=== PATIENT | female | born 1945 | race Hispanic/Latino ===

== ENCOUNTER 2016-07-19 12:52 | Inpatient (IN) | payer MEDICARE, MEDICAID ==
[2016-07-19] MEDS ORDERED: Sodium Chloride 0.9% 1,000 ML IV ONE (13:36)
[2016-07-19 14:53] LABS: BASO % 0.3 % (0.0-2.0); EOS % 9.4 % (0.0-4.0); HEMATOCRIT 23.9 % (34.0-47.0); LYMPH # 1.3 K/uL (1.0-4.3); LYMPH % 12.3 % (20.0-40.0); MEAN CELL VOLUME 74.4 fL (81.0-99.0); MEAN CORPUSCULAR HEMOGLOBIN 24.5 pg (27.0-31.0); MEAN CORPUSCULAR HGB CONC 32.9 g/dL (33.0-37.0); MEAN PLATELET VOLUME 9.5 fL (7.2-11.7); MONO # 0.4 K/uL (0.0-0.8); RED CELL DISTRIBUTION WIDTH 17.2 % (11.5-14.5); WHITE BLOOD COUNT 10.7 K/uL (4.8-10.8)
[2016-07-19 15:05] LABS: POTASSIUM 3.7 mmol/L (3.6-5.2)
[2016-07-19 15:07] LABS: BILIRUBIN,TOTAL 0.5 mg/dL (0.2-1.3)
[2016-07-19 15:08] LABS: ALB/GLOB RATIO 0.8 (1.0-2.1); PHOSPHOROUS 3.6 mg/dL (2.5-4.5)
[2016-07-19 15:09] LABS: CALCIUM 9.1 mg/dl (8.6-10.4); MAGNESIUM 1.9 mg/dL (1.6-2.3)
[2016-07-19 15:18] LABS: TROPONIN I 0.015 ng/mL (0.00-0.120)
[2016-07-19 16:26] LABS: RBC URINE 1 /hpf (0-3); RENAL EPITHELIAL < 1 /hpf (0-3); URINE BACTERIA FEW (<OCC); URINE BILIRUBIN NEGATIVE (NEGATIVE); URINE BLOOD NEGATIVE (NEGATIVE); URINE COLOR Yellow (YELLOW); URINE GLUCOSE (UA) NORMAL (Normal); URINE KETONE NEGATIVE (NEGATIVE); URINE LEUKOCYTE ESTERASE 2+ Leu/uL (Negative); URINE PROTEIN NEGATIVE (NEGATIVE); URINE UROBILINOGEN NORMAL mg/dL (0.2-1.0); WBC URINE 7 /hpf (0-5)
--- NOTE | 2016-07-19 17:10 | C.PDOC ---
History Of Present Illness Pt has been having frequent falls. She was evaluated at [facility] and found to have a left kidney mass. She has been having chronic diarrhea. She lives alone and ambulates with a walker, but she fell again today and could not get back up on her own. Time Seen by Provider: 07/19/16 13:10 Chief Complaint (Nursing): Dizziness/Lightheaded History Per: Patient, Family (sister) Onset/Duration Of Symptoms: Days Current Symptoms Are (Timing): Still Present Seizure Or Post-ictal Symptoms: None Possible Causative Factor(s): Decreased PO Intake, Other (Diarrhea) Fall Associated With With Symptoms: Yes, No Injury As Result Of Fall Severity: Moderate - Symptoms Of CVA Associated Symptoms: Decreased Ability To Walk Recent Head Trauma: No Past Medical History Reviewed: Historical Data, Nursing Documentation, Vital Signs Vital Signs: Last Vital Signs Temp 97.9 F 07/19/16 13:04 Pulse 89 07/19/16 17:06 Resp 20 07/19/16 17:06 BP 112/77 07/19/16 17:06 Pulse Ox 96 07/19/16 17:06 - Medical History PMH: HTN, Hypothyroidism Surgical History: No Surg Hx Family History: States: Unknown Family Hx - Social History Hx Alcohol Use: No Hx Substance Use: No - Immunization History Hx Tetanus Toxoid Vaccination: No Hx Influenza Vaccination: No Hx Pneumococcal Vaccination: No Review Of Systems Except As Marked, All Systems Reviewed And Found Negative. Constitutional: Positive for: Weakness. Negative for: Fever Cardiovascular: Negative for: Chest Pain Respiratory: Negative for: Shortness of Breath Gastrointestinal: Positive for: Abdominal Pain, Diarrhea. Negative for: Vomiting, Melena, Hematochezia, Hematemesis Genitourinary: Negative for: Dysuria Musculoskeletal: Negative for: Neck Pain Skin: Negative for: Rash Neurological: Negative for: Weakness, Numbness, Seizures, Headache Physical Exam - Physical Exam Appears: No Acute Distress, Chronically Ill Skin: Warm, Dry Head: Atraumatic Eye(s): bilateral: PERRL, EOMI Neck: Normal ROM, Supple Cardiovascular: Rhythm Regular Respiratory: Normal Breath Sounds, No Accessory Muscle Use Gastrointestinal/Abdominal: Soft, No Tenderness Back: No CVA Tenderness Extremity: Normal ROM Neurological/Psych: Oriented x3, Normal Motor, Normal Sensation ED Course And Treatment - Laboratory Results Result Diagrams: 07/19/16 14:55 07/19/16 14:46 Lab Interpretation: Abnormal Interpretation Of Abnormal: Anemia. Renal insufficiency. ECG: Interpreted By Me, Viewed By Me ECG Rhythm: Sinus Rhythm, Nonspecific Changes ECG Interpretation: No Acute Changes Rate From EC O2 Sat by Pulse Oximetry: 96 Pulse Ox Interpretation: Normal - Physician Consult Information Physician Contacted: Andrey Lopez (Urology) Outcome Of Conversation: He will see pt in the hospital. Disposition Discussed With : Juli Montes (city controller) Comment: He accepted pt on his service. Doctor Will See Patient In The: Hospital Counseled Patient/Family Regarding: Studies Performed, Diagnosis - Disposition Disposition: HOSPITALIZED Disposition Time: 17:13 Condition: FAIR - Clinical Impression Clinical Impression: Anemia, Diarrhea, Frequent falls, Renal mass
[2016-07-19] MEDS ORDERED: Dextrose 5%/0.45% NS 1,000 ML IV ONE (20:52)
[2016-07-19] MEDS: Dextrose 5%/0.45% NS 1,000 ML IV SCH (20:59)
[2016-07-20 07:04] LABS: INR 1.3
[2016-07-20 07:11] LABS: HEMATOCRIT 22.3 % (34.0-47.0); MEAN CELL VOLUME 73.4 fL (81.0-99.0); MEAN CORPUSCULAR HEMOGLOBIN 24.5 pg (27.0-31.0); MEAN CORPUSCULAR HGB CONC 33.4 g/dL (33.0-37.0); MEAN PLATELET VOLUME 9.2 fL (7.2-11.7); RED CELL DISTRIBUTION WIDTH 17.6 % (11.5-14.5); WHITE BLOOD COUNT 9.7 K/uL (4.8-10.8)
[2016-07-20 07:27] LABS: POTASSIUM 3.8 mmol/L (3.6-5.2)
[2016-07-20 07:29] LABS: ALB/GLOB RATIO 0.8 (1.0-2.1); BILIRUBIN,TOTAL 0.4 mg/dL (0.2-1.3); CALCIUM 8.4 mg/dl (8.6-10.4); TOTAL PROTEIN 6.3 g/dL (6.3-8.3)
[2016-07-20 07:58] LABS: CARCINOEMBRYONIC ANTIGEN 2.6 ng/mL (0-3.0)
[2016-07-20] MEDS: Enoxaparin 40 mg Syringe SC SCH (10:00)
[2016-07-20] MEDS ORDERED: Propofol 10 mg/ml Inj (20 ML) ONE (10:24)
--- NOTE | 2016-07-20 10:32 | CP.PCM.PN ---
Subjective - Date & Time of Evaluation Date of Evaluation: 07/20/16 Time of Evaluation: 08:30 - Subjective Subjective: PGY2 Medicine Note - Dr. Montes's service: Patient seen and examined at bedside this AM. Patient has no new complaints. Awaiting results. Objective - Vital Signs/Intake and Output Vital Signs (last 24 hours): Temp Pulse Resp BP Pulse Ox 97.6 F 74 20 122/78 96 07/20/16 08:38 07/20/16 08:38 07/20/16 08:38 07/20/16 08:38 07/20/16 08:38 - Medications Medications: Current Medications Enoxaparin Sodium (Lovenox) 40 mg SC DAILY [facility] Dextrose/Sodium Chloride (Dextrose 5%/0.45% Ns 1000 Ml) 1,000 mls @ 80 mls/hr IV .[id number] [facility] Last Admin: 07/19/16 20:59 Dose: 80 mls/hr Pantoprazole Sodium (Protonix Inj) 40 mg IVP DAILY [facility] Pneumococcal Polyvalent Vaccine (Pneumovax 23 Vaccine) 0.5 ml IM .ONCE ONE Stop: 07/22/16 10:01 - Labs Labs: 07/20/16 06:46 07/20/16 06:46 PT 14.3 SECONDS (9.7-12.2) H 07/20/16 06:46 INR 1.3 07/20/16 06:46 APTT 27 SECONDS (21-34) 07/20/16 06:46 - Constitutional Appears: Non-toxic, No Acute Distress - Head Exam Head Exam: NORMAL INSPECTION - Eye Exam Eye Exam: EOMI - ENT Exam ENT Exam: Mucous Membranes Moist - Respiratory Exam Respiratory Exam: Clear to Ausculation Bilateral, NORMAL BREATHING PATTERN. absent: Rhonchi, Wheezes - Cardiovascular Exam Cardiovascular Exam: REGULAR RHYTHM, +S1, +S2 - GI/Abdominal Exam GI & Abdominal Exam: Soft, Normal Bowel Sounds Assessment and Plan - Assessment and Plan (Free Text) Assessment: Anemia Hgb 7.4 today from 7.9 on admission F/U stool occult blood GI consult - Dr. Smith - help appreciated Heme/Onc consult - Dr. Medeiros - f/u recs Chronic Diarrhea GI consult - Dr. Smith - help appreciated NPO diet CA 19-9 127H CA 125 20.9 (normal) F/u C diff, stool occult blood, stool culture Transaminitis Improving GI consult - Dr. Smith - help appreciated Monitor Frequent Falls UA abnormal but Urine culture negative Likely secondary to anemia Kidney Mass Urology consult - Dr. Lopez - f/u recs Prophylaxis Lovenox 40mg SC daily Protonix 40mg IVP daily
[2016-07-20] MEDS ORDERED: Peg-Electrolyte Oral Soln 4L (Golytely) PO ONE (13:38)
[2016-07-20] MEDS: Dextrose 5%/0.45% NS 1,000 ML IV SCH ×2 (14:23→20:49)
--- NOTE | 2016-07-20 15:05 | PCM.URO ---
Urology Progress Note - Objective Lab Results Last 24 Hours: Laboratory Results - last 24 hr 07/20/16 07/20/16 07/20/16 06:46 06:46 06:46 WBC 9.7 RBC 3.03 L Hgb 7.4 L Hct 22.3 L MCV 73.4 L MCH 24.5 L MCHC 33.4 RDW 17.6 H Plt Count 270 MPV 9.2 PT 14.3 H INR 1.3 APTT 27 Sodium 135 Potassium 3.8 Chloride 103 Carbon Dioxide 22 Anion Gap 14 BUN 8 Creatinine 1.1 Est GFR ( Amer) 59 Est GFR (Non-Af Amer) 49 Random Glucose 99 Calcium 8.4 L Total Bilirubin 0.4 AST 36 D ALT 57 H D Alkaline Phosphatase 154 H Total Protein 6.3 Albumin 2.8 L Globulin 3.5 Albumin/Globulin Ratio 0.8 L Carcinoembryonic Ag 2.6 CA 19-9 Antigen 127 H CA 125 Antigen 20.9 Blood Type Antibody Screen 07/20/16 06:46 WBC RBC Hgb Hct MCV MCH MCHC RDW Plt Count MPV PT INR APTT Sodium Potassium Chloride Carbon Dioxide Anion Gap BUN Creatinine Est GFR ( Amer) Est GFR (Non-Af Amer) Random Glucose Calcium Total Bilirubin AST ALT Alkaline Phosphatase Total Protein Albumin Globulin Albumin/Globulin Ratio Carcinoembryonic Ag CA 19-9 Antigen CA 125 Antigen Blood Type O POSITIVE Antibody Screen Negative Intake & Output: Intake & Output 07/19/16 07/20/16 07/20/16 18:59 06:59 18:59 Intake Total 300 Balance 300 Intake: IV 300 Other: # Bowel Movements 4 Vital Signs: Vital Signs - 24 hr 07/19/16 07/19/16 07/19/16 17:14 18:36 19:23 Temperature 99.6 F Pulse Rate 89 Respiratory 16 Rate Blood Pressure 128/62 O2 Sat by Pulse 96 98 Oximetry 07/19/16 07/19/16 07/20/16 20:58 23:32 03:17 Temperature 98.1 F 98 F Pulse Rate 88 71 Respiratory 16 16 20 Rate Blood Pressure 138/69 128/76 O2 Sat by Pulse 99 98 Oximetry 07/20/16 07/20/16 07/20/16 08:38 10:31 10:39 Temperature 97.6 F 97.6 F 97.5 F L Pulse Rate 74 74 81 Respiratory 20 20 15 Rate Blood Pressure 122/78 96/67 L 97/70 L O2 Sat by Pulse 96 97 98 Oximetry 07/20/16 07/20/16 10:54 11:09 Temperature 97.5 F L 97.5 F L Pulse Rate 78 77 Respiratory 15 21 Rate Blood Pressure 95/62 L 98/70 L O2 Sat by Pulse 99 98 Oximetry
--- NOTE | 2016-07-20 15:22 | PCM.PSYCH ---
Initial Psychiatric Evaluation - Initial Psychiatric Evaluation Type of Admission: Voluntary Legal Status: Capacity Chief Complaint (in patient's own words): I am feeling anxious History of Present Illness and Precipitating Events: Patient is a 70 year old female who lives alone. Patient's sister is her primary caregiver. Patient is not a reliable historian, and sister is providing information at patient's bedside. patient was admitted on the medical floor because of the left kidney mass. Sister states that patient has a history of major depressive, schizophrenia, and bipolar disease that had been managed for 15-20 years with depakote 750 mg and seroquil 300 mg BID. Patient was admitted to [facility] [place] in [place], and taken off depakote completely reduced to seroquil 300 mg daily. Sister states that the patient was experiencing "shakes" and still is, and no reason was given for the medication change. Sister states that the patient had another "breakdown" recently- the sister tried to go to the patient's house but the patient was on the floor and unable to get to the door. Sister called the police who came and broke the door down. Sister stated that the patient had defecated in all rooms of her house. Sister contacted [facility] which has been taking care of the patient's medical information- they suggested a psychiatric consult while at [facility] to see if patient needs to be started back on her initial doses of depakote and seroquil. On exam, patient is internally withdrawn and displays disorganized thinking and disorganized speech. She also expresses a fine hand tremor. however she denies any auditory or visual hallucinations and denies any suicidal ideation or homicidal ideation. Current Medications: Active Medications Generic Name Dose Route Start Last Admin Trade Name James PRN Reason Stop Dose Admin Bisacodyl 5 mg 07/20/16 16:00 Dulcolax PO 07/20/16 16:01 ONCE ONE Enoxaparin Sodium 40 mg 07/20/16 10:00 07/20/16 10:00 Lovenox SC Not Given DAILY [facility] Dextrose/Sodium Chloride 1,000 mls @ 80 mls/hr 07/19/16 19:45 07/20/16 14:23 Dextrose 5%/0.45% Ns 1000 Ml IV 80 mls/hr .[id number] [facility] Administration Levothyroxine Sodium 25 mcg 07/21/16 06:30 Synthroid PO DAILY@0630 [facility] Metoclopramide HCl 10 mg 07/20/16 18:00 Reglan IVP 07/22/16 18:01 Q6 [facility] Pantoprazole Sodium 40 mg 07/20/16 10:00 07/20/16 14:25 Protonix Inj IVP 40 mg DAILY [facility] Administration Pneumococcal Polyvalent Vaccine 0.5 ml 07/22/16 10:00 Pneumovax 23 Vaccine IM 07/22/16 10:01 .ONCE ONE Primidone 250 mg 07/20/16 14:00 07/20/16 14:24 Mysoline PO 250 mg Q12 [facility] Administration Quetiapine Fumarate 300 mg 07/20/16 22:00 Seroquel PO HS [facility] Past Psychiatric History - Past Psychiatric History Previous Treatment History: Inpatient Pertinent Medical Hx (Current Medical&Sleep Prob, Allergies): Allergies Allergy/AdvReac Type Severity Reaction Status Date / Time No Known Allergies Allergy Verified 07/19/16 19:10 Levothyroxine [Synthroid] 25 mcg PO DAILY 07/19/16 Primidone [Mysoline] 250 mg PO Q8 07/19/16 QUEtiapine [SEROquel] 300 mg PO DAILY 07/19/16 Review of Systems - Review of Systems All systems: reviewed and no additional remarkable complaints except - Psychiatric Psychiatric: Anxiety, Depression, Irritability Mental Status Examination - Personal Presentation Personal Presentation: Looks stated age - Affect Affect: Broad - Motor Activity Additional comments: Hand tremor - Reliability in Providing Information Reliability in Providing Information: Poor, due to alteration in thoughts, Poor , due to cognitve impairment - Speech Speech: Disorganized, Tangential - Mood Mood: Depressed, Anxious - Formal Thought Process Formal Thought Process: Delusions, Paranoia, Loosening of associations - Obsessions/Compulsions Obsessions: No Compulsions: No - Cognitive Functions Orientation: Person, Place, Situation, Time Sensorium: Alert Attention/Concentration: Attentive Abstract Thinking: [place] Estimate of Intelligence: Below average Judgement: Imparied, as evidence by: Poor judgement, Imparied, as evidence by: Lack of insight into illness - Risk Risk: Diminished functioning - Strength & Assets Inventory Strength & Assets Inventory: Family support DSM 5 DX - DSM 5 DSM 5 Diagnosis: schizoaffective disorder bipolar - Recommended/Plan of Treatment Treatment Recommendations and Plan of Treatment: Schizoaffective disorder bipolar type CBT Psychoeducation Supportive therapy, individual therapy Seroquel 300 mg by mouth daily at bedtime - Smoking Cessation Smoking Cessation Initiated: No
[2016-07-20] MEDS ORDERED: Bisacodyl 5mg EC Tab PO ONE (16:00)
--- NOTE | 2016-07-20 17:17 | CP.PCM.CON ---
History of Present Illness - History of Present Illness History of Present Illness: 70 year old female with a history of bipolar/schizophrenia, left renal mass, admitted s/p fall. The patient is not a clear historian but review of her medical records shows she was diagnosed with left sided renal mass. She is unclear if she was supposed to have this removed. She notes to increasing abdominal pain associated with diarrhea. Due to repeated bowel movements, she notes to increasing weakness which led to her fall. She denies abnormal bleeding and bruising. Past medical history: bipolar/schizophrenia Past surgical history: None Family history: Denies hematologic and oncologic problems Social history: Denies tobacco, alcohol, and illicit drug use. Allergies: NKA Review of systems: All remaining review of systems inclduing HEENT, cardiovascular, respiratory, gastrointestinal, genitourinary, musculoskeletal, dermatologic, neurologic, and psychiatric are negative unless mentioned in the HPI. Past Patient History - Past Medical History & Family History Past Medical History?: Yes - Past Social History Smoking Status: Never Smoked - CARDIAC Hx Cardiac Disorders: Yes Hx Hypertension: Yes - PULMONARY Hx Respiratory Disorders: No - NEUROLOGICAL Hx Neurological Disorder: No - HEENT Hx HEENT Problems: No - RENAL Hx Chronic Kidney Disease: No - ENDOCRINE/METABOLIC Hx Endocrine Disorders: Yes Hx Hypothyroidism: Yes - HEMATOLOGICAL/ONCOLOGICAL Hx Blood Disorders: No - INTEGUMENTARY Hx Dermatological Problems: No - MUSCULOSKELETAL/RHEUMATOLOGICAL Hx Musculoskeletal Disorders: No Hx Falls: Yes - GASTROINTESTINAL Hx Gastrointestinal Disorders: No - GENITOURINARY/GYNECOLOGICAL Hx Genitourinary Disorders: Yes Hx Urinary Tract Infection: Yes Other/Comment: renal tumor - PSYCHIATRIC Hx Psychophysiologic Disorder: No Hx Substance Use: No - SURGICAL HISTORY Hx Surgeries: No - ANESTHESIA Hx Anesthesia: No Meds Allergies/Adverse Reactions: Allergies Allergy/AdvReac Type Severity Reaction Status Date / Time No Known Allergies Allergy Verified 07/19/16 19:10 - Medications Medications: Current Medications Enoxaparin Sodium (Lovenox) 40 mg SC DAILY [facility] Last Admin: 07/20/16 10:00 Dose: Not Given Hydroxyzine HCl (Atarax) 25 mg PO Q6 PRN PRN Reason: Agitation Dextrose/Sodium Chloride (Dextrose 5%/0.45% Ns 1000 Ml) 1,000 mls @ 80 mls/hr IV .[id number] [facility] Last Admin: 07/20/16 14:23 Dose: 80 mls/hr Levothyroxine Sodium (Synthroid) 25 mcg PO DAILY@0630 [facility] Metoclopramide HCl (Reglan) 10 mg IVP Q6 [facility] Stop: 07/22/16 18:01 Pantoprazole Sodium (Protonix Inj) 40 mg IVP DAILY [facility] Last Admin: 07/20/16 14:25 Dose: 40 mg Pneumococcal Polyvalent Vaccine (Pneumovax 23 Vaccine) 0.5 ml IM .ONCE ONE Stop: 07/22/16 10:01 Primidone (Mysoline) 250 mg PO Q12 [facility] Last Admin: 07/20/16 14:24 Dose: 250 mg Quetiapine Fumarate (Seroquel) 300 mg PO HS [facility] Physical Exam - Head Exam Head Exam: ATRAUMATIC - Eye Exam Eye Exam: Normal appearance - ENT Exam ENT Exam: Mucous Membranes Dry - Respiratory Exam Respiratory Exam: NORMAL BREATHING PATTERN - Cardiovascular Exam Cardiovascular Exam: +S1, +S2 - GI/Abdominal Exam GI & Abdominal Exam: Normal Bowel Sounds - Extremities Exam Extremities exam: Positive for: pedal edema - Neurological Exam Neurological exam: Oriented x3 - Psychiatric Exam Psychiatric exam: Depressed, Flat Affect - Skin Skin Exam: Warm Results - Vital Signs Recent Vital Signs: Last Vital Signs Temp 98.6 F 07/20/16 16:17 Pulse 71 07/20/16 16:17 Resp 20 07/20/16 16:17 BP 108/76 07/20/16 16:17 Pulse Ox 93 L 07/20/16 16:17 - Labs Result Diagrams: 07/20/16 06:46 07/20/16 06:46 Labs: Laboratory Results - last 24 hr 07/20/16 07/20/16 07/20/16 06:46 06:46 06:46 WBC 9.7 RBC 3.03 L Hgb 7.4 L Hct 22.3 L MCV 73.4 L MCH 24.5 L MCHC 33.4 RDW 17.6 H Plt Count 270 MPV 9.2 PT 14.3 H INR 1.3 APTT 27 Sodium 135 Potassium 3.8 Chloride 103 Carbon Dioxide 22 Anion Gap 14 BUN 8 Creatinine 1.1 Est GFR ( Amer) 59 Est GFR (Non-Af Amer) 49 Random Glucose 99 Calcium 8.4 L Total Bilirubin 0.4 AST 36 D ALT 57 H D Alkaline Phosphatase 154 H Total Protein 6.3 Albumin 2.8 L Globulin 3.5 Albumin/Globulin Ratio 0.8 L Carcinoembryonic Ag 2.6 CA 19-9 Antigen 127 H CA 125 Antigen 20.9 Blood Type Antibody Screen Clerical Work Check Pre-Trans Vis Hemolysis Post-Tx Visible Hemolys Post-Trans RAKAN Poly 07/20/16 07/20/16 06:46 17:08 WBC RBC Hgb Hct MCV MCH MCHC RDW Plt Count MPV PT INR APTT Sodium Potassium Chloride Carbon Dioxide Anion Gap BUN Creatinine Est GFR ( Amer) Est GFR (Non-Af Amer) Random Glucose Calcium Total Bilirubin AST ALT Alkaline Phosphatase Total Protein Albumin Globulin Albumin/Globulin Ratio Carcinoembryonic Ag CA 19-9 Antigen CA 125 Antigen Blood Type O POSITIVE Antibody Screen Negative Clerical Work Check No discrepancy Pre-Trans Vis Hemolysis No hemolysis Post-Tx Visible Hemolys No hemolysis Post-Trans RAKAN Poly Negative Assessment & Plan (1) Anemia Assessment and Plan: ferritin, retic count, b12, folate, FOBT to further characterize GI evaluation 2U PRBC ordered for today Status: Acute (2) Renal mass Assessment and Plan: Urology evaluation I have ordered a CT C/A/P with PO+IV contrast Thank you for this interesting consult. Status: Acute (3) High serum carbohydrate antigen 19-9 (CA19-9) Assessment and Plan: CT imaging pending Thank you for this interesting consult. Status: Acute
--- NOTE | 2016-07-21 01:57 | CARD ---
APPROVED REPORT EKG Measurement Heart [id number] <Conclusion> Normal sinus rhythm Nonspecific ST abnormality Abnormal ECG
--- NOTE | 2016-07-21 02:16 | PCM.URO ---
Urology Progress Note - Objective Lab Results Last 24 Hours: Laboratory Results - last 24 hr 07/20/16 07/20/16 07/20/16 06:46 06:46 06:46 WBC 9.7 RBC 3.03 L Hgb 7.4 L Hct 22.3 L MCV 73.4 L MCH 24.5 L MCHC 33.4 RDW 17.6 H Plt Count 270 MPV 9.2 PT 14.3 H INR 1.3 APTT 27 Sodium 135 Potassium 3.8 Chloride 103 Carbon Dioxide 22 Anion Gap 14 BUN 8 Creatinine 1.1 Est GFR ( Amer) 59 Est GFR (Non-Af Amer) 49 Random Glucose 99 Calcium 8.4 L Total Bilirubin 0.4 AST 36 D ALT 57 H D Alkaline Phosphatase 154 H Total Protein 6.3 Albumin 2.8 L Globulin 3.5 Albumin/Globulin Ratio 0.8 L Carcinoembryonic Ag 2.6 CA 19-9 Antigen 127 H CA 125 Antigen 20.9 Blood Type Antibody Screen Tx React Basic Work-up Clerical Work Check Pre-Trans Blood Type Pre-Trans Vis Hemolysis Pre-Tx Ab Screen (Gel) Post-Trans Blood Type Post-Tx Visible Hemolys Post-Tx Ab Screen (Gel) Post-Trans RAKAN Poly Pathologist Comment [facility] 07/20/16 07/20/16 07/20/16 06:46 17:08 19:16 WBC RBC Hgb Hct MCV MCH MCHC RDW Plt Count MPV PT INR APTT Sodium Potassium Chloride Carbon Dioxide Anion Gap BUN Creatinine Est GFR ( Amer) Est GFR (Non-Af Amer) Random Glucose Calcium Total Bilirubin 0.5 AST ALT Alkaline Phosphatase Total Protein Albumin Globulin Albumin/Globulin Ratio Carcinoembryonic Ag CA 19-9 Antigen CA 125 Antigen Blood Type O POSITIVE Antibody Screen Negative Tx React Basic Work-up Compatible Clerical Work Check No discrepancy Pre-Trans Blood Type O POSITIVE Pre-Trans Vis Hemolysis No hemolysis Pre-Tx Ab Screen (Gel) Negative Post-Trans Blood Type O POSITIVE Post-Tx Visible Hemolys No hemolysis Post-Tx Ab Screen (Gel) Negative Post-Trans RAKAN Poly Negative Pathologist Comment [facility] 07/21/16 01:16 WBC RBC Hgb Hct MCV MCH MCHC RDW Plt Count MPV PT INR APTT Sodium Potassium Chloride Carbon Dioxide Anion Gap BUN Creatinine Est GFR ( Amer) Est GFR (Non-Af Amer) Random Glucose Calcium Total Bilirubin 0.4 AST ALT Alkaline Phosphatase Total Protein Albumin Globulin Albumin/Globulin Ratio Carcinoembryonic Ag CA 19-9 Antigen CA 125 Antigen Blood Type Antibody Screen Tx React Basic Work-up Clerical Work Check Pre-Trans Blood Type Pre-Trans Vis Hemolysis Pre-Tx Ab Screen (Gel) Post-Trans Blood Type Post-Tx Visible Hemolys Post-Tx Ab Screen (Gel) Post-Trans RAKAN Poly Pathologist Comment [facility] Intake & Output: Intake & Output 07/20/16 07/20/16 07/21/16 06:59 18:59 06:59 Intake Total 300 640 Output Total 9 Balance 300 631 Intake: IV 300 Intake, IV Amount 640 Right Antecubital 640 Blood Product 0 Apheresis Rbc Cp2d As3 Lr 0 1st Unit [id number] Output: Urine/Stool Mix 9 Other: # Voids Urine, Voided 4 # Bowel Movements 4 Vital Signs: Vital Signs - 24 hr 07/20/16 07/20/16 07/20/16 03:17 08:38 10:31 Temperature 97.6 F 97.6 F Pulse Rate 74 74 Respiratory 20 20 20 Rate Blood Pressure 122/78 96/67 L O2 Sat by Pulse 96 97 Oximetry 07/20/16 07/20/16 07/20/16 10:39 10:54 11:09 Temperature 97.5 F L 97.5 F L 97.5 F L Pulse Rate 81 78 77 Respiratory 15 15 21 Rate Blood Pressure 97/70 L 95/62 L 98/70 L O2 Sat by Pulse 98 99 98 Oximetry 07/20/16 07/20/16 07/20/16 15:18 15:33 15:48 Temperature 98.3 F 99.9 F H 100.4 F H Pulse Rate 93 H 100 H 102 H Respiratory 18 22 20 Rate Blood Pressure 98/66 L 108/66 108/60 O2 Sat by Pulse Oximetry 07/20/16 07/20/16 07/20/16 15:57 16:17 17:00 Temperature 99.4 F 98.6 F 99.1 F Pulse Rate 71 100 H Respiratory 20 20 Rate Blood Pressure 108/76 102/62 O2 Sat by Pulse 93 L Oximetry 07/20/16 07/21/16 20:24 00:00 Temperature 98.4 F 98.1 F Pulse Rate 91 H Respiratory 20 Rate Blood Pressure 101/68 O2 Sat by Pulse 98 Oximetry
[2016-07-21] MEDS: Levothyroxine 25 MCG TAB PO SCH (05:41)
[2016-07-21 06:38] LABS: BASO % 0.3 % (0.0-2.0); EOS # 1.2 K/uL (0.0-0.7); EOS % 11.6 % (0.0-4.0); LYMPH % 18.8 % (20.0-40.0); MEAN CELL VOLUME 74.2 fL (81.0-99.0); MEAN CORPUSCULAR HEMOGLOBIN 24.3 pg (27.0-31.0); MEAN CORPUSCULAR HGB CONC 32.8 g/dL (33.0-37.0); MEAN PLATELET VOLUME 9.1 fL (7.2-11.7); MONO # 0.5 K/uL (0.0-0.8); MONO % 4.6 % (0.0-10.0); RED CELL DISTRIBUTION WIDTH 17.4 % (11.5-14.5); WHITE BLOOD COUNT 10.5 K/uL (4.8-10.8)
[2016-07-21 06:43] LABS: CHLORIDE 104 mmol/L (98-107); POTASSIUM 3.3 mmol/L (3.6-5.2); SODIUM 136 mmol/L (132-148)
[2016-07-21 06:45] LABS: BILIRUBIN,TOTAL 0.5 mg/dL (0.2-1.3); GFR AFRICAN-AMERICAN > 60
[2016-07-21 06:46] LABS: ALB/GLOB RATIO 0.9 (1.0-2.1); ALKALINE PHOSPHATASE 136 U/L (38-126); ALT/SGPT 49 U/L (9-52); AST/SGOT 27 U/L (14-36); BLOOD UREA NITROGEN 6 mg/dL (7-17); CARBON DIOXIDE 18 mmol/L (22-30); GLUCOSE,RANDOM 92 mg/dL (65-105); TOTAL PROTEIN 5.8 g/dL (6.3-8.3)
[2016-07-21 06:47] LABS: CALCIUM 7.8 mg/dl (8.6-10.4)
--- NOTE | 2016-07-21 08:05 | CP.PCM.PN ---
Subjective - Date & Time of Evaluation Date of Evaluation: 07/21/16 Time of Evaluation: 10:00 - Subjective Subjective: PGY2 on medicine Dr. Montes service: Pt seen and examined at bedside this morning. Pt said no more diarrhea in the morning and NPO for colonoscopy afternoon. Objective - Vital Signs/Intake and Output Vital Signs (last 24 hours): Temp Pulse Resp BP Pulse Ox 98.6 F 84 20 99/69 L 96 07/21/16 08:00 07/21/16 08:00 07/21/16 08:00 07/21/16 08:00 07/21/16 08:00 Intake and Output: 07/21/16 07/21/16 06:59 18:59 Intake Total 1280 Output Total 14 Balance 1266 - Medications Medications: Current Medications Enoxaparin Sodium (Lovenox) 40 mg SC DAILY [facility] Last Admin: 07/20/16 10:00 Dose: Not Given Hydroxyzine HCl (Atarax) 25 mg PO Q6 PRN PRN Reason: Agitation Dextrose/Sodium Chloride (Dextrose 5%/0.45% Ns 1000 Ml) 1,000 mls @ 80 mls/hr IV .[id number] [facility] Last Admin: 07/20/16 20:49 Dose: Not Given Levothyroxine Sodium (Synthroid) 25 mcg PO DAILY@0630 [facility] Last Admin: 07/21/16 05:41 Dose: 25 mcg Metoclopramide HCl (Reglan) 10 mg IVP Q6 [facility] Stop: 07/22/16 18:01 Last Admin: 07/21/16 05:41 Dose: 10 mg Pantoprazole Sodium (Protonix Inj) 40 mg IVP DAILY [facility] Last Admin: 07/20/16 14:25 Dose: 40 mg Pneumococcal Polyvalent Vaccine (Pneumovax 23 Vaccine) 0.5 ml IM .ONCE ONE Stop: 07/22/16 10:01 Primidone (Mysoline) 250 mg PO Q12 [facility] Last Admin: 07/20/16 21:22 Dose: 250 mg Quetiapine Fumarate (Seroquel) 300 mg PO HS [facility] Last Admin: 07/20/16 21:21 Dose: 300 mg - Labs Labs: 07/21/16 06:24 07/21/16 06:24 PT 14.3 SECONDS (9.7-12.2) H 07/20/16 06:46 INR 1.3 07/20/16 06:46 APTT 27 SECONDS (21-34) 07/20/16 06:46 - Constitutional Appears: Non-toxic, No Acute Distress - Head Exam Head Exam: NORMAL INSPECTION, NORMOCEPHALIC - Eye Exam Eye Exam: Normal appearance Pupil Exam: NORMAL ACCOMODATION - Respiratory Exam Respiratory Exam: Clear to Ausculation Bilateral, NORMAL BREATHING PATTERN - Cardiovascular Exam Cardiovascular Exam: REGULAR RHYTHM, +S1, +S2. absent: Gallop, Rubs - GI/Abdominal Exam GI & Abdominal Exam: Soft, Normal Bowel Sounds - Extremities Exam Extremities Exam: absent: Pedal Edema - Neurological Exam Neurological Exam: Alert, Awake, Oriented x3 - Psychiatric Exam Psychiatric exam: Normal Mood - Skin Skin Exam: Intact Assessment and Plan - Assessment and Plan (Free Text) Assessment: Anemia Hgb 7.5 today from 7.9 on admission F/U stool occult blood GI consult - Dr. Smith - terell appreciated Heme/Onc consult - Dr. Medeiros - f/u recs EGD showed hiatal hernia. Colonoscopy today Chronic Diarrhea GI consult - Dr. Smith - terell appreciated NPO diet CA 19-9 127H CA 125 20.9 (normal) F/u C diff, stool occult blood, stool culture Transaminitis Improving GI consult - Dr. Luis figueredo appreciated Monitor [place] UA abnormal but Urine culture negative Likely secondary to anemia Kidney Mass Urology consult - Dr. Lopez - f/u recs Prophylaxis Lovenox 40mg SC daily Protonix 40mg IVP daily Management per Dr. Montes
--- NOTE | 2016-07-21 08:09 | HP ---
A 70-year-old female chief complaint of weakness, fatigue, tiredness, diarrhea. The patient was eval uated in [facility], found to have a renal tumor, seen by ____ workup. The patient i s a nonsmoker. PHYSICAL EXAMINATION: GENERAL: The patient is awake, alert, oriented. VITAL SIGNS: Temperature is 98, pulse is 90. HEENT: Within normal limits. NECK: Supple. CHEST: Symmetrical. HEART: Regular. ABDOMEN: Soft. EXTREMITIES: No edema. The patient suffers from ____ malignancy, renal mass, etiology undetermined at this point. Bedrest, s upportive care, IV fluids, GI consultation and urology consultation. Juli Acosta MD cc: [id number] TT: 07/20/2016 11:13:51 fredy 07/21/2016 07:06:51
[2016-07-21 09:16] LABS: URINE BILIRUBIN NEGATIVE (NEGATIVE); URINE BLOOD 2+ (NEGATIVE); URINE COLOR Yellow (YELLOW); URINE GLUCOSE (UA) NORMAL (Normal); URINE KETONE NEGATIVE (NEGATIVE); URINE LEUKOCYTE ESTERASE 2+ Leu/uL (Negative); URINE PROTEIN 1+ mg/dL (NEGATIVE); URINE UROBILINOGEN NORMAL mg/dL (0.2-1.0)
[2016-07-21] MEDS ORDERED: Iohexol 240 (50 ml) PO ONE (09:30)
[2016-07-21 09:41] LABS: RBC URINE 10 /hpf (0-3); URINE BACTERIA MANY (<OCC)
[2016-07-21 09:42] LABS: WBC URINE 30 /hpf (0-5)
--- NOTE | 2016-07-21 09:47 | RAD ---
HISTORY: chronic diarrhea COMPARISON: No prior. FINDINGS: BOWEL: Unremarkable bowel gas pattern. No abnormally dilated bowel loops. There is scattered air-fluid levels seen within what are likely small bowel loops, on the upright view. No free intraperitoneal air is identified. There is no hepatic or splenic enlargement. No masses or abnormal intra-abdominal calcifications are identified. BONES: Normal. OTHER FINDINGS: None. IMPRESSION: No evidence of bowel obstruction or bowel perforation.
[2016-07-21] MEDS: Dextrose 5%/0.45% NS 1,000 ML IV SCH (10:29)
[2016-07-21] MEDS: Enoxaparin 40 mg Syringe SC SCH (10:30)
[2016-07-21] MEDS ORDERED: Propofol 10 mg/ml Inj (20 ML) ONE ×2 (11:15→11:41)
[2016-07-21] MEDS ORDERED: Lidocaine Hydrochloride 5 ML INJ ONE (11:15)
[2016-07-21] MEDS ORDERED: Glucagon Recombinant 1 mg Inj ONE (11:27)
[2016-07-21] MEDS ORDERED: Lactated Ringer's 500 ML IV SCH ×2 (12:00→17:14)
[2016-07-21 14:15] VITALS: RESP 20
[2016-07-21] MEDS: metroNIDAZOLE IV 500 mg/100 ml 500 MG/100 ML BAG IVPB SCH ×2 (15:29→21:36)
--- NOTE | 2016-07-21 15:29 | NM ---
PROCEDURE: Renal scan, flow study HISTORY: renal mass pre op nephrectomy COMPARISON: None. TECHNIQUE: 21.5 mCi technetium 99 M DTPA administered intravenously. FINDINGS: Right Kidney: Flow component: Unremarkable profusion/flow to the right kidney Time to peak: 6.2 minutes Peak to T1/2 Peak: 340 minutes Left Kidney: Flow component: Diminished flow to the left kidney relative to the right kidney. Time to peak: 5.2 minutes Peak to T1/2 Peak: 271.1 minutes Qualitatively, there is a relative photon deficient area at mid and lower pole region left kidney presumed to represent space-occupying lesion/mass. Split Renal Function: Right kidney 65.9 % Left kidney 34.1 % IMPRESSION: Diminished perfusion left kidney compared to right. Total contribution renal function from the left kidney 34.1%. The remaining 65.9% to the right kidney.
[2016-07-21] MEDS ORDERED: Potassium Chloride 20 mEq/15 ml LIQ UD PO PRN (17:07)
[2016-07-21] MEDS ORDERED: Iodixanol 320 MG/ML 100 ML BOTTLE IV ONE (17:31)
--- NOTE | 2016-07-21 20:09 | CT ---
EXAM: CT Abdomen and Pelvis With Intravenous Contrast CLINICAL HISTORY: 70 years old, female; Condition or disease; Kidney or ureter condition; Other: Renal mass; Lung condition and disease; Other: R/O mass; Additional info: Renal mass, staging TECHNIQUE: Axial computed tomography images of the abdomen and pelvis with intravenous contrast. This CT exam was performed using one or more of the following dose reduction techniques: automated exposure control, adjustment of the mA and/or kV according to patient size, and/or use of iterative reconstruction technique. Coronal and sagittal reformatted images were created and reviewed. CONTRAST: 100 mL of [id number] administered intravenously. COMPARISON: No relevant prior studies available. FINDINGS: Lower thorax: No acute findings. ABDOMEN: Liver: The liver measures 19.5 cm in craniocaudal span. Gallbladder and bile ducts: Unremarkable. No calcified stones. No ductal dilation. Pancreas: Unremarkable. No mass. No ductal dilation. Spleen: Unremarkable. No splenomegaly. Adrenals: Unremarkable. No mass. Kidneys and ureters: There is a complex solid mass noted in the lower pole of the left kidney measuring 6.7 x 5.4 x 7.8 cm. there is misregistration artifact at which may account for apparent enlargement of the left renal vein. Tumor extension into the renal vein however is not excluded. 2 simple cysts are seen in the extreme upper pole of left kidney. On the right, there is a 2.2 cm simple cyst with a density measurement of 23H. There is a hyperdense wall noted posteriorly could represent an area of calcification or enhancement. A nonobstructing parenchymal calcification is seen in the lower pole of the right kidney. There is a complex hypoechoic area adjacent to the calcification with a maximum diameter of 1.3 cm and density measurement of 13 H. Projecting from the lower pole of the right kidney is a 2.2 cm lesion with a density measurement of 35H. Low density lesion measuring 8 mm in the upper pole has a density measurement of 16 H. There is respiratory motion causing misregistration artifact which makes characterization of the upper pole low-density lesions less reliable. Stomach and bowel: Scattered colonic diverticula. There is thickening noted of the rectosigmoid colon. There are no pericolonic inflammatory changes. No obstruction. Appendix: No findings to suggest acute appendicitis. PELVIS: Bladder: Unremarkable. No mass. Reproductive: Vascular calcifications are noted within the uterus. ABDOMEN and PELVIS: Intraperitoneal space: Unremarkable. No free air. No significant fluid collection. Bones/joints: mild degenerative changes are noted of both hip joints. No acute fracture. No dislocation. Soft tissues: Unremarkable. Vasculature: See above. Lymph nodes: Unremarkable. No enlarged lymph nodes. IMPRESSION: 1. Left renal cell carcinoma. Respiratory misregistration limits the study. There is a suggestion of tumor extension into the left renal vein 2. Multiple cysts noted in the right kidney. Misregistration artifact due to respiratory motion makes characterization of the smaller lesions in the right kidney less reliable. There is a complex lesion in lower pole mildly ultrasound not meeting the criteria for simple cyst. It could represent a complex cyst. MR might be helpful in this patient 3. Thickening of the rectosigmoid colon with no pericolonic inflammatory changes noted. An indolent colitis is among the diagnostic considerations. There are scattered colonic diverticula. 4. Hepatomegaly EXAM: CT Chest With Intravenous Contrast CLINICAL HISTORY: 70 years old, female; Condition or disease; Kidney or ureter condition; Other: Renal mass; Lung condition and disease; Other: R/O mass; Additional info: Renal mass, staging TECHNIQUE: Axial computed tomography images of the chest with intravenous contrast. This CT exam was performed using one or more of the following dose reduction techniques: automated exposure control, adjustment of the mA and/or kV according to patient size, and/or use of iterative reconstruction technique. Coronal and sagittal reformatted images were created and reviewed. CONTRAST: 100 mL of administered intravenously. EXAM DATE/TIME: Exam ordered 07/20/2016 4:05 PM COMPARISON: No relevant prior studies available. FINDINGS: Lungs: The mild hypoventilatory changes are noted in the dependent portion of the right and left lung base. A focal nodular density is noted in the anterior segment of the right upper lobe which appears pleural-based. It measures 4 mm. in thickness.A 4 mm nodule is seen in the posterior segment of the right upper lobe (series 4 image 35). Pleural space: A tiny pleural effusion is suggested at the right lung base. No pneumothorax. Heart: Unremarkable. No cardiomegaly. No significant pericardial effusion. Mediastinum: There is small hiatal hernia. Bones/joints: Unremarkable. No acute fracture. No dislocation. Soft tissues: Unremarkable. Vasculature: Calcifications within the spleen could represent granulomas or be vascular in nature. No thoracic aortic aneurysm. Lymph nodes: Prevascular and precarinal lymph nodes are noted. No enlarged lymph nodes are seen. No enlarged hilar lymph nodes are seen. Kidneys and ureters: 2 dominant cysts are noted in the upper pole left kidney with a maximum diameter of 4 cm and 2.6 cm respectively and a density measurement of 11 H. and 13 H. respectively. Both appear to be simple cysts. A 1 cm low density lesion is also noted in the upper pole of the right kidney with a density measurement of 20 H. This suggests a simple cyst. IMPRESSION: 1. 2 pulmonary nodules noted in the right lung as described above. Recommend CT follow-up at 6-12 months due to the high risk of malignancy. If unchanged recommend an additional CT follow-up study at 18-24 months. 2. Left renal cell carcinoma 3. Left renal cell carcinoma. Numerous a low density lesions seen in the right kidney. Some not fully characterized due to motion artifact. A complex cyst cystic lesion in the lower pole of right kidney does not meet the CT criteria for simple cyst. Please see the CT report of the abdomen and pelvis done on the same date 4. Small hiatal hernia Images were attached to this report and are available at [email or web address]
--- NOTE | 2016-07-22 01:33 | CP.PCM.PN ---
Subjective - Date & Time of Evaluation Date of Evaluation: 07/21/16 Time of Evaluation: 18:00 - Subjective Subjective: No complaints. Objective - Vital Signs/Intake and Output Vital Signs (last 24 hours): Temp Pulse Resp BP Pulse Ox 99.4 F 79 20 108/65 94 L 07/22/16 00:00 07/22/16 00:00 07/22/16 00:00 07/22/16 00:00 07/22/16 00:00 Intake and Output: 07/21/16 07/22/16 18:59 06:59 Intake Total 700 980 Balance 700 980 - Medications Medications: Current Medications Enoxaparin Sodium (Lovenox) 40 mg SC DAILY [facility] Last Admin: 07/21/16 10:30 Dose: Not Given Hydroxyzine HCl (Atarax) 25 mg PO Q6 PRN PRN Reason: Agitation Dextrose/Sodium Chloride (Dextrose 5%/0.45% Ns 1000 Ml) 1,000 mls @ 80 mls/hr IV .[id number] [facility] Last Admin: 07/21/16 10:29 Dose: Not Given Metronidazole (Flagyl) 500 mg in 100 mls @ 100 mls/hr IVPB Q8 [facility] Last Admin: 07/21/16 21:36 Dose: 100 mls/hr Levothyroxine Sodium (Synthroid) 25 mcg PO DAILY@0630 [facility] Last Admin: 07/21/16 05:41 Dose: 25 mcg Metoclopramide HCl (Reglan) 10 mg IVP Q6 [facility] Stop: 07/22/16 18:01 Last Admin: 07/22/16 00:33 Dose: Not Given Pantoprazole Sodium (Protonix Inj) 40 mg IVP DAILY [facility] Last Admin: 07/21/16 10:30 Dose: 40 mg Pneumococcal Polyvalent Vaccine (Pneumovax 23 Vaccine) 0.5 ml IM .ONCE ONE Stop: 07/22/16 10:01 Potassium Chloride (Potassium Chloride Oral Soln) 40 meq PO ONCE PRN PRN Reason: low potasium Last Admin: 07/21/16 19:00 Dose: 40 meq Primidone (Mysoline) 250 mg PO Q12 [facility] Last Admin: 07/21/16 21:37 Dose: 250 mg Quetiapine Fumarate (Seroquel) 300 mg PO HS [facility] Last Admin: 07/21/16 21:38 Dose: 300 mg - Labs Labs: 07/21/16 06:24 07/21/16 06:24 PT 14.3 SECONDS (9.7-12.2) H 07/20/16 06:46 INR 1.3 07/20/16 06:46 APTT 27 SECONDS (21-34) 07/20/16 06:46 - Head Exam Head Exam: ATRAUMATIC - Eye Exam Eye Exam: Normal appearance - ENT Exam ENT Exam: Mucous Membranes Dry - Respiratory Exam Respiratory Exam: NORMAL BREATHING PATTERN - Cardiovascular Exam Cardiovascular Exam: +S1, +S2 - GI/Abdominal Exam GI & Abdominal Exam: Normal Bowel Sounds - Extremities Exam Extremities Exam: Pedal Edema Assessment and Plan (1) Anemia Assessment & Plan: f/u anemia w/u Status: Acute (2) Renal mass Assessment & Plan: urology f/u Status: Acute (3) High serum carbohydrate antigen 19-9 (CA19-9) Status: Acute
[2016-07-22] MEDS: metroNIDAZOLE IV 500 mg/100 ml 500 MG/100 ML BAG IVPB SCH ×3 (05:45→23:01)
[2016-07-22] MEDS: Levothyroxine 25 MCG TAB PO SCH (05:47)
[2016-07-22] MEDS: Dextrose 5%/0.45% NS 1,000 ML IV SCH ×3 (05:52→11:03)
--- NOTE | 2016-07-22 07:36 | CP.PCM.PN ---
Subjective - Date & Time of Evaluation Date of Evaluation: 07/22/16 Time of Evaluation: 09:00 - Subjective Subjective: PGY2 on medicine Dr. Montes service: Pt seen and examined at bedside this morning. Pt reports no complaints overnight and no acute events overnight. Objective - Vital Signs/Intake and Output Vital Signs (last 24 hours): Temp Pulse Resp BP Pulse Ox 99.4 F 79 20 108/65 94 L 07/22/16 00:00 07/22/16 00:00 07/22/16 00:00 07/22/16 00:00 07/22/16 00:00 Intake and Output: 07/22/16 07/22/16 06:59 18:59 Intake Total 1900 Balance 1900 - Medications Medications: Current Medications Enoxaparin Sodium (Lovenox) 40 mg SC DAILY [facility] Last Admin: 07/21/16 10:30 Dose: Not Given Hydroxyzine HCl (Atarax) 25 mg PO Q6 PRN PRN Reason: Agitation Dextrose/Sodium Chloride (Dextrose 5%/0.45% Ns 1000 Ml) 1,000 mls @ 80 mls/hr IV .[id number] [facility] Last Admin: 07/22/16 05:52 Dose: 80 mls/hr Metronidazole (Flagyl) 500 mg in 100 mls @ 100 mls/hr IVPB Q8 [facility] Last Admin: 07/22/16 05:45 Dose: 100 mls/hr Levothyroxine Sodium (Synthroid) 25 mcg PO DAILY@0630 [facility] Last Admin: 07/22/16 05:47 Dose: 25 mcg Metoclopramide HCl (Reglan) 10 mg IVP Q6 [facility] Stop: 07/22/16 18:01 Last Admin: 07/22/16 05:47 Dose: Not Given Pantoprazole Sodium (Protonix Inj) 40 mg IVP DAILY [facility] Last Admin: 07/21/16 10:30 Dose: 40 mg Pneumococcal Polyvalent Vaccine (Pneumovax 23 Vaccine) 0.5 ml IM .ONCE ONE Stop: 07/22/16 10:01 Potassium Chloride (Potassium Chloride Oral Soln) 40 meq PO ONCE PRN PRN Reason: low potasium Last Admin: 07/21/16 19:00 Dose: 40 meq Primidone (Mysoline) 250 mg PO Q12 [facility] Last Admin: 07/21/16 21:37 Dose: 250 mg Quetiapine Fumarate (Seroquel) 300 mg PO HS [facility] Last Admin: 07/21/16 21:38 Dose: 300 mg - Labs Labs: 07/21/16 06:24 07/21/16 06:24 PT 14.3 SECONDS (9.7-12.2) H 07/20/16 06:46 INR 1.3 07/20/16 06:46 APTT 27 SECONDS (21-34) 07/20/16 06:46 - Constitutional Appears: Non-toxic, No Acute Distress - Head Exam Head Exam: NORMOCEPHALIC - Eye Exam Eye Exam: Normal appearance Pupil Exam: NORMAL ACCOMODATION - ENT Exam ENT Exam: Mucous Membranes Moist - Respiratory Exam Respiratory Exam: Clear to Ausculation Bilateral, NORMAL BREATHING PATTERN. absent: Wheezes - Cardiovascular Exam Cardiovascular Exam: REGULAR RHYTHM, +S1, +S2. absent: Gallop, Rubs - GI/Abdominal Exam GI & Abdominal Exam: Soft, Normal Bowel Sounds - Neurological Exam Neurological Exam: Alert, Awake, Oriented x3 - Psychiatric Exam Psychiatric exam: Normal Affect, Normal Mood - Skin Skin Exam: Dry, Intact Assessment and Plan - Assessment and Plan (Free Text) Assessment: Anemia Hgb 7.5 today from 7.9 on admission F/U stool occult blood GI consult - Dr. Smith - terell appreciated Heme/Onc consult - Dr. Medeiros - f/u recs EGD showed hiatal hernia. Colonoscopy showed diverticulosis and colonic spasm Negative abdomen xray. Chronic Diarrhea GI consult - Dr. Smith - terell appreciated CA 19-9 127H CA 125 20.9 (normal) F/u C diff, stool occult blood, stool culture Transaminitis Improving GI consult - Dr. Smith - terell appreciated Monitor [place] UA abnormal but Urine culture negative Likely secondary to anemia Kidney Mass Urology consult - Dr. Lopez - f/u recs Prophylaxis Lovenox 40mg SC daily Protonix 40mg IVP daily Management per Dr. Montes
[2016-07-22 08:05] LABS: BASO # 0.1 K/uL (0.0-0.2); BASO % 0.7 % (0.0-2.0); EOS % 13.5 % (0.0-4.0); HEMATOCRIT 21.5 % (34.0-47.0); LYMPH # 1.6 K/uL (1.0-4.3); LYMPH % 22.2 % (20.0-40.0); MEAN CELL VOLUME 74.1 fL (81.0-99.0); MEAN CORPUSCULAR HGB CONC 32.4 g/dL (33.0-37.0); MEAN PLATELET VOLUME 9.2 fL (7.2-11.7); MONO # 0.4 K/uL (0.0-0.8); MONO % 5.6 % (0.0-10.0); RED CELL DISTRIBUTION WIDTH 17.7 % (11.5-14.5); WHITE BLOOD COUNT 7.4 K/uL (4.8-10.8)
[2016-07-22 08:20] LABS: ALB/GLOB RATIO 0.8 (1.0-2.1); BILIRUBIN,TOTAL 0.3 mg/dL (0.2-1.3); TOTAL PROTEIN 5.5 g/dL (6.3-8.3)
[2016-07-22 08:21] LABS: CALCIUM 7.8 mg/dl (8.6-10.4)
--- NOTE | 2016-07-22 08:30 | US ---
HISTORY: INCREASE CA 19-9 COMPARISON: None. TECHNIQUE: Sonographic evaluation of the abdomen. FINDINGS: LIVER: Measures 18.1 cm. Diffusely increased echogenicity of the liver parenchyma. No mass. No intrahepatic bile duct dilatation. GALLBLADDER: Unremarkable. No gallstones. COMMON BILE DUCT: Measures 4 mm. No stones. No dilatation. PANCREAS: Unremarkable as visualized. No mass. No ductal dilatation. RIGHT KIDNEY: Measures 11.8cm. Normal cortical thickness and echogenicity. Upper pole simple cyst, 2.0 x 2.0 x 2.5 cm. Lower pole simple cyst, 2.1 x 2.5 x 2.9 cm. Nonobstructing lower pole calculus, 10 mm. No hydronephrosis. LEFT KIDNEY: Measures 12.8cm. Normal cortical thickness and echogenicity. Upper pole minimally complicated cyst with thin internal septation, 1.8 x 4.5 x 5.9 cm. Mid left renal cortical cyst, 2.2 x 1.6 x 1.7 cm. Mid to lower pole solid mass, 9.1 x 6.0 x 6.0 cm. Suspicious for renal cell malignancy. Recommend further evaluation with pre and post contrast enhanced computed tomography of the abdomen and pelvis. SPLEEN: Normal in size and contour. No mass. AORTA: No aneurysmal dilatation. IVC: Unremarkable. OTHER FINDINGS: None. IMPRESSION: 9 cm solid mass mid to lower left kidney suspicious for malignant neoplasm. Recommend evaluation with pre and post contrast enhanced computed tomography. Bilateral renal cysts. Nonobstructing 10 mm right lower pole renal calculus. Fatty infiltration of the liver with minimal hepatomegaly.
[2016-07-22] MEDS ORDERED: Pneumococcal 23-Valent Vaccine IM ONE (10:00)
[2016-07-22] MEDS: Enoxaparin 40 mg Syringe SC SCH (11:09)
--- NOTE | 2016-07-22 14:45 | PCM.URO ---
Urology Progress Note - Objective Lab Results Last 24 Hours: Laboratory Results - last 24 hr 07/22/16 07/22/16 07/22/16 07:36 07:36 08:57 WBC 7.4 RBC 2.91 L Hgb 7.0 L Hct 21.5 L MCV 74.1 L MCH 24.0 L MCHC 32.4 L RDW 17.7 H Plt Count 246 MPV 9.2 Neut % (Auto) 58.0 Lymph % (Auto) 22.2 [place] % (Auto) 5.6 Eos % (Auto) 13.5 H Baso % (Auto) 0.7 Neut # 4.3 Lymph # 1.6 [place] # 0.4 Eos # 1.0 H Baso # 0.1 Retic Count 1.3 Sodium 135 Potassium 4.0 Chloride 105 Carbon Dioxide 21 L Anion Gap 13 BUN 8 Creatinine 1.1 Est GFR ( Amer) 59 Est GFR (Non-Af Amer) 49 Random Glucose 102 Calcium 7.8 L Ferritin 537.0 Total Bilirubin 0.3 AST 28 ALT 43 Alkaline Phosphatase 119 Total Protein 5.5 L Albumin 2.4 L Globulin 3.1 Albumin/Globulin Ratio 0.8 L Vitamin B12 487 Folate 6.0 Intake & Output: Intake & Output 07/21/16 07/22/16 07/22/16 18:59 06:59 18:59 Intake Total 700 1900 Balance 700 1900 Intake: IV 400 Intake, IV Amount 1380 Right Antecubital 1380 Oral 300 520 Blood Product 0 Apheresis Rbc Cp2d As3 Lr 0 1st Unit [id number] Other: # Voids Urine, Voided 3 # Bowel Movements 0 Vital Signs: Vital Signs - 24 hr 07/21/16 07/22/16 07/22/16 16:03 00:00 08:00 Temperature 98.4 F 99.4 F 97.5 F L Pulse Rate 83 79 100 H Respiratory 20 20 20 Rate Blood Pressure 133/72 108/65 108/70 O2 Sat by Pulse 98 94 L 97 Oximetry
--- NOTE | 2016-07-22 15:02 | PCM.PYCHPN ---
Psychiatric Progress Note - Psychiatric Progress Note Patient seen today, length of contact: 16 min Patient Chief Complaint: I am feeling okay Problems Identified/Issues Discussed: Patient seen and examined today following colonoscopy on 07/21. Patient states she is feeling alright and denies any muscle aches, racing thoughts, hallucinations, and voices. She complains of muscle aches. She states she was not able to sleep well last night, but denies any changes in mood. Patient states she feels her psych medications are helping her. Medication Change: No Medical Record Reviewed: Yes Mental Status Examination - Cognitive Function Orientation: Person, Place, Situation, Time Memory: Intact Attention: WNL Concentration: Poor Association: WNL Fund of Knowledge: Poor - Mood Mood: Depressed, Anxious - Affect Affect: Broad - Speech Speech: Soft - Formal Thought Process Formal Thought Process: Paranoia - Suicidal Ideation Suicidal Ideation: No - Homicidal Ideation Homicidal Ideation: No Goal/Treatment Plan - Goal/Treatment Plan Need for Continued Stay: Discharge may exacerbated symptoms, Severe functional impairment Progress Toward Problem(s) and Goals/Treatment Plan: Schizoaffective disorder bipolar type CBT Psychoeducation Supportive therapy, individual therapy Seroquel 300 mg by mouth daily at bedtime - Smoking Cessation Smoking Cessation Initiated: No
--- NOTE | 2016-07-22 21:35 | CON ---
DATE: 07/19/2016 LOCATION: From Dr. Xavier Smith to Dr. Juli Acosta. I was called for GI consultation by the admitting MD. The patient is seen and fully examined on 06/22 as requested by the admitting medical staff. The entire chart is reviewed, including but not limited to the most recent lab and radiology study results, current and previous medication list, cur rent and the previous medical events as well as allergies to medication list. Case discussed with [facility] staff on the floor at length. HISTORY OF PRESENT ILLNESS: This is a 70-year-old female with a reported recent history of a left ki dney mass diagnosed in the [facility], recently was admitted to the hospital through the Emergency Room with main complaint of profuse diarrhea, generalized weakness and malaise, dyspeps ia with post prandial abdominal distention with reported more than one episode of falling to the grou nd recently. The patient reported no active bleeding recently. No chest pain or palpitation and no reported signi ficant complaint of shortness of breath. PAST MEDICAL HISTORY: Including mainly, but not limited to: 1. Peptic ulcer disease. 2. Hypertension. 3. Hypothyroidism. 4. Recently diagnosed left renal mass in another institution. FAMILY HISTORY: Unknown. SOCIAL HISTORY: She reported no known history of cigarette smoking or alcohol intake. CURRENT MEDICATIONS: Medication lists were reviewed. ALLERGY TO MEDICATION: Unclear. LABORATORY DATA: After being admitted to the hospital, the patient was found to have low hemoglobin of 7.9 with hematocrit 23.9 with mildly elevated creatinine of 1.4. Stool workup is still pending. PHYSICAL EXAMINATION: GENERAL: A 70-year-old female, appears to be awake, alert, oriented, complaining of crampy abdominal pain with abdominal distention and recurrent episodes of diarrhea. VITAL SIGNS: Afebrile with a pulse of 86, respiratory rate 20-22 with blood pressure 118/74. HEENT: Showed pale, dry oral mucoid membrane. Nonicteric sclerae. LYMPH NODES: No lymphadenitis or lymphadenopathy. LUNGS: Few scattered crepitation. Decreased air entry at bases bilaterally. HEART: Positive S1 and S2. ABDOMEN: Soft with generalized tenderness with mild distention. No mass or organomegaly. No reboun d tenderness or guarding. RECTAL: The patient refused. EXTREMITIES: With mild lower extremities edematous changes. No clubbing or cyanosis. NEUROLOGIC: No reported new neurological deficit, sensory or motor. IMPRESSION: 1. Reexacerbation of peptic ulcer disease. 2. Diarrhea of unclear etiology, rule out infectious diarrhea versus mechanical diarrhea. The possi bility of diarrhea secondary to thyroid disorder, medication induced, was raised. 3. Known history of not limited to peptic ulcer disease, hypertension, hypothyroidism. 4. Left renal mass of unclear etiology. SUGGESTION: 1. Agree with your plan. 2. MRI of the abdomen and the pelvis. 3. Complete stool workup. 4. Adjust oral intake; no milk, no citrus and no seeds. 5. Cancer markers including CEA, CA 19-9. 6. Due to the patient's anemia, endoscopic evaluation of the GI tract to be kept in mind when she is more stable clinically. 7. Further recommendations to follow. Thank you for letting me participate in your patient's case management. We will follow up closely wi th you. ____ powder, 1 bag twice a day p.o. is to be started after complete workup is finished. Xavier Smith MD cc: 14 TT: 07/22/2016 21:34:11 Confirmation # [id number] Dictation # [id number]
[2016-07-23] MEDS: metroNIDAZOLE IV 500 mg/100 ml 500 MG/100 ML BAG IVPB SCH ×2 (05:28→13:45)
[2016-07-23] MEDS: Levothyroxine 25 MCG TAB PO SCH (05:35)
[2016-07-23 08:25] LABS: BASO # 0.1 K/uL (0.0-0.2); BASO % 0.7 % (0.0-2.0); EOS # 0.9 K/uL (0.0-0.7); EOS % 9.8 % (0.0-4.0); LYMPH # 1.6 K/uL (1.0-4.3); LYMPH % 17.2 % (20.0-40.0); MEAN CELL VOLUME 77.2 fL (81.0-99.0); MEAN CORPUSCULAR HEMOGLOBIN 25.3 pg (27.0-31.0); MEAN CORPUSCULAR HGB CONC 32.7 g/dL (33.0-37.0); MEAN PLATELET VOLUME 9.4 fL (7.2-11.7); MONO # 0.4 K/uL (0.0-0.8); MONO % 4.3 % (0.0-10.0); RED CELL DISTRIBUTION WIDTH 18.4 % (11.5-14.5); WHITE BLOOD COUNT 9.3 K/uL (4.8-10.8)
[2016-07-23 08:41] LABS: CHLORIDE 104 mmol/L (98-107); SODIUM 134 mmol/L (132-148)
[2016-07-23 08:42] LABS: POTASSIUM 3.9 mmol/L (3.6-5.2)
[2016-07-23 08:44] LABS: ALB/GLOB RATIO 0.9 (1.0-2.1); ALKALINE PHOSPHATASE 130 U/L (38-126); AST/SGOT 26 U/L (14-36); BILIRUBIN,TOTAL 0.6 mg/dL (0.2-1.3); BLOOD UREA NITROGEN 9 mg/dL (7-17); CARBON DIOXIDE 20 mmol/L (22-30); GFR AFRICAN-AMERICAN > 60
[2016-07-23 08:45] LABS: ALT/SGPT 40 U/L (9-52); CALCIUM 8.2 mg/dl (8.6-10.4); GLUCOSE,RANDOM 94 mg/dL (65-105)
[2016-07-23] MEDS: Enoxaparin 40 mg Syringe SC SCH (09:32)
--- NOTE | 2016-07-23 10:24 | CP.PCM.PN ---
Subjective - Date & Time of Evaluation Date of Evaluation: 07/23/16 Time of Evaluation: 09:00 - Subjective Subjective: PGY2 on medicine Dr. Montes service: Pt seen and examined at bedside this morning. Pt reports no complaints overnight and no acute events overnight. Spoke with sister at bedside in length regarding her condition. Objective - Vital Signs/Intake and Output Vital Signs (last 24 hours): Temp Pulse Resp BP Pulse Ox 99 F 100 H 20 144/84 95 07/23/16 07:29 07/23/16 07:29 07/23/16 07:29 07/23/16 08:50 07/23/16 07:29 Intake and Output: 07/23/16 07/23/16 06:59 18:59 Intake Total 2488 Balance 2488 - Medications Medications: Current Medications Enoxaparin Sodium (Lovenox) 40 mg SC DAILY [facility] Last Admin: 07/23/16 09:32 Dose: 40 mg Hydroxyzine HCl (Atarax) 25 mg PO Q6 PRN PRN Reason: Agitation Metronidazole (Flagyl) 500 mg in 100 mls @ 100 mls/hr IVPB Q8 [facility] Last Admin: 07/23/16 05:28 Dose: 100 mls/hr Levothyroxine Sodium (Synthroid) 25 mcg PO DAILY@0630 [facility] Last Admin: 07/23/16 05:35 Dose: 25 mcg Pantoprazole Sodium (Protonix Inj) 40 mg IVP DAILY [facility] Last Admin: 07/23/16 09:32 Dose: 40 mg Potassium Chloride (Potassium Chloride Oral Soln) 40 meq PO ONCE PRN PRN Reason: low potasium Last Admin: 07/21/16 19:00 Dose: 40 meq Primidone (Mysoline) 250 mg PO Q12 [facility] Last Admin: 07/23/16 09:32 Dose: 250 mg Quetiapine Fumarate (Seroquel) 300 mg PO HS [facility] Last Admin: 07/22/16 22:53 Dose: 300 mg - Labs Labs: 07/23/16 08:15 07/23/16 08:15 PT 14.3 SECONDS (9.7-12.2) H 07/20/16 06:46 INR 1.3 07/20/16 06:46 APTT 27 SECONDS (21-34) 07/20/16 06:46 - Constitutional Appears: Non-toxic, No Acute Distress - Head Exam Head Exam: NORMOCEPHALIC - Eye Exam Eye Exam: Normal appearance - ENT Exam ENT Exam: Mucous Membranes Moist - Respiratory Exam Respiratory Exam: Clear to Ausculation Bilateral - Cardiovascular Exam Cardiovascular Exam: REGULAR RHYTHM, +S1, +S2 - GI/Abdominal Exam GI & Abdominal Exam: Soft, Normal Bowel Sounds. absent: Tenderness - Neurological Exam Neurological Exam: Alert, Awake, Oriented x3 - Psychiatric Exam Psychiatric exam: Normal Mood - Skin Skin Exam: Intact Assessment and Plan - Assessment and Plan (Free Text) Assessment: Anemia Hgb 7.5 today from 7.9 on admission GI consult - Dr. Smith - help appreciated Heme/Onc consult - Dr. Medeiros - f/u recs EGD showed hiatal hernia. Colonoscopy showed diverticulosis and colonic spasm Negative abdomen xray. Pt will discharge to rehab today for physical therapy. Chronic Diarrhea GI consult - Dr. Smith - help appreciated CA 19-9 127H CA 125 20.9 (normal) Outpatient follow up. Frequent Falls UA abnormal but Urine culture negative Likely secondary to anemia Kidney Mass Urology consult - Dr. Lopez - outpatient management Management per Dr. Montes
--- NOTE | 2016-07-23 11:46 | PN ---
DATE: 07/23/2016 LOCATION: 359, bed B. This is a 70-year-old female, seen and examined in rounds today, post blood transfusion due to subseq uent drop of hemoglobin and hematocrit without reported clear evidence of active bleeding. The entire chart is reviewed including, but not limited to, most recent lab and radiology study resul ts, current and previous medication lists, current and previous medical events. Case discussed at [facility] with the staff on the floor. The patient had abdominal ultrasound, which showed evidence of 9 c m solid mass in the left kidney suspicious of malignancy with nonobstructive right lower pole renal s tone and fatty infiltrate of the liver. Most recent lab results showed hemoglobin of 9.7, hematocrit 29.0 post blood transfusion with low ind ices, highly suggestive of hypochromic microcytic anemia with normal white blood cells and normal mayela telet count with low CO2 content of 20, low calcium of 8.2 and low albumin 2.8, low total protein 6.0 . PHYSICAL EXAMINATION: GENERAL: A 70-year-old female. VITAL SIGNS: Afebrile with heart rate of 94, blood pressure 140/76 with respiratory rate 20-22. HEENT: Showed pale, dry oral mucoid membrane. Nonicteric sclerae. LUNGS: Few scattered crepitation, decreased air entry at bases. HEART: Positive S1 and S2. ABDOMEN: Soft. Bowel sounds are present. No mass or organomegaly. No rebound tenderness or guardi ng. RECTAL: The patient refused. EXTREMITIES: Without significant clubbing or cyanosis, but slight lower extremity edematous changes. IMPRESSION: 1. Anemia that could be secondary to her renal mass lesion versus reexacerbation of peptic ulcer dis ease and/or secondary to the patient's diverticulosis which was diagnosed by colonoscopy recently. 2. Peptic ulcer disease with evidence of hiatus hernia, acute gastritis and duodenitis. 3. Metabolic acidosis, most likely secondary to above. 4. Known history of, but not limited to, hypothyroidism, hypertension as well as renal stone. SUGGESTION: 1. Continue current management. 2. Urology consultation. 3. Follow up on cancer markers. 4. Advance oral intake. 5. Further recommendation to follow. Thank you for letting me participate in your patient's case management. We will follow up closely wi th you. Xavier Smith MD cc: 14 TT: 07/23/2016 11:46:07 Confirmation # [id number] Dictation # [id number]
--- NOTE | 2016-07-23 15:30 | CT ---
PROCEDURE: CT HEAD WITHOUT CONTRAST. HISTORY: frequent falls COMPARISON: None available. TECHNIQUE: Axial computed tomography images were obtained through the head/brain without intravenous contrast. Radiation dose: Total exam DLP = 964 mGy-cm. This CT exam was performed using one or more of the following dose reduction techniques: Automated exposure control, adjustment of the mA and/or kV according to patient size, and/or use of iterative reconstruction technique. FINDINGS: HEMORRHAGE: No intracranial hemorrhage. BRAIN: No mass effect or edema. Extensive periventricular white matter lucency compatible with chronic microvascular ischemic disease. Associated mild atrophic changes. VENTRICLES: Unremarkable. No hydrocephalus. CALVARIUM: Unremarkable. PARANASAL SINUSES: Unremarkable as visualized. No significant inflammatory changes. MASTOID AIR CELLS: Unremarkable as visualized. No inflammatory changes. OTHER FINDINGS: None. IMPRESSION: Extensive periventricular white matter lucency compatible with chronic microvascular ischemic disease. Associated mild atrophic changes.
--- NOTE | 2016-07-23 15:39 | PCM.URO ---
Urology Progress Note - Objective Lab Results Last 24 Hours: Laboratory Results - last 24 hr 07/20/16 07/23/16 07/23/16 06:46 08:15 08:15 WBC 9.3 RBC 3.76 L Hgb 9.5 L D Hct 29.0 L MCV 77.2 L D MCH 25.3 L MCHC 32.7 L RDW 18.4 H Plt Count 233 MPV 9.4 Neut % (Auto) 68.0 Lymph % (Auto) 17.2 L Reagan % (Auto) 4.3 Eos % (Auto) 9.8 H Baso % (Auto) 0.7 Neut # 6.3 Lymph # 1.6 Reagan # 0.4 Eos # 0.9 H Baso # 0.1 Sodium 134 Potassium 3.9 Chloride 104 Carbon Dioxide 20 L Anion Gap 14 BUN 9 Creatinine 1.0 Est GFR ( Amer) > 60 Est GFR (Non-Af Amer) 55 Random Glucose 94 Calcium 8.2 L Total Bilirubin 0.6 AST 26 ALT 40 Alkaline Phosphatase 130 H Total Protein 6.0 L Albumin 2.8 L Globulin 3.2 Albumin/Globulin Ratio 0.9 L Blood Type O POSITIVE Antibody Screen Negative Intake & Output: Intake & Output 07/22/16 07/23/16 07/23/16 18:59 06:59 18:59 Intake Total 960 2488 880 Balance 960 2488 880 Intake: Intake, IV Amount 480 800 400 Right Antecubital 480 800 400 Oral 480 660 480 Blood Product 928 Apheresis Rbc Cp2d As3 Lr 0 1st Unit [id number] Red Blood Cells Cpd As1 325 Lr Unit [id number] Other 100 Apheresis Rbc Cp2d As3 Lr 50 1st Unit [id number] Other: # Voids Urine, Voided 3 5 4 # Bowel Movements 2 0 1 Vital Signs: Vital Signs - 24 hr 07/22/16 07/22/16 07/22/16 19:15 20:34 20:49 Temperature 100.2 F H 100.0 F H 99.4 F Pulse Rate 87 91 H Respiratory 20 20 Rate Blood Pressure 133/72 121/76 130/74 O2 Sat by Pulse Oximetry 07/22/16 07/22/16 07/22/16 21:04 21:34 23:45 Temperature 99.8 F H 99.4 F 99.9 F H Pulse Rate 88 86 86 Respiratory 20 20 20 Rate Blood Pressure 141/79 126/74 125/65 O2 Sat by Pulse Oximetry 07/22/16 07/23/16 07/23/16 23:53 00:42 01:23 Temperature 97.9 F 98.5 F 98.5 F Pulse Rate 86 99 H Respiratory 20 20 Rate Blood Pressure 125/65 120/72 O2 Sat by Pulse 96 Oximetry 07/23/16 07/23/16 07/23/16 01:38 01:53 02:23 Temperature 99.7 F H 99.4 F 98.2 F Pulse Rate 94 H 99 H 99 H Respiratory 20 20 20 Rate Blood Pressure 142/82 129/82 132/86 O2 Sat by Pulse Oximetry 07/23/16 07/23/16 07/23/16 03:23 03:56 07:29 Temperature 98.5 F 98.2 F 99 F Pulse Rate 89 89 100 H Respiratory 20 20 20 Rate Blood Pressure 122/78 122/78 163/89 H O2 Sat by Pulse 95 Oximetry 07/23/16 08:50 Temperature Pulse Rate Respiratory Rate Blood Pressure 144/84 O2 Sat by Pulse Oximetry
[2016-07-23 17:05] VITALS: TEMP 99.4; O2SAT 96
--- NOTE | 2016-07-23 17:40 | CP.PCM.PN ---
Subjective - Date & Time of Evaluation Date of Evaluation: 07/23/16 Time of Evaluation: 11:00 - Subjective Subjective: awake alert, NAD. Objective - Vital Signs/Intake and Output Vital Signs (last 24 hours): Temp Pulse Resp BP Pulse Ox 99.4 F 98 H 20 163/91 H 96 07/23/16 16:00 07/23/16 16:00 07/23/16 16:00 07/23/16 16:00 07/23/16 16:00 Intake and Output: 07/23/16 07/23/16 06:59 18:59 Intake Total 2488 880 Balance 2488 880 - Medications Medications: Current Medications Acetaminophen (Tylenol 325mg Tab) 650 mg PO Q6 PRN PRN Reason: headache Last Admin: 07/23/16 17:10 Dose: 650 mg Hydroxyzine HCl (Atarax) 25 mg PO Q6 PRN PRN Reason: Agitation Metronidazole (Flagyl) 500 mg in 100 mls @ 100 mls/hr IVPB Q8 [facility] Last Admin: 07/23/16 13:45 Dose: 100 mls/hr Levothyroxine Sodium (Synthroid) 25 mcg PO DAILY@0630 [facility] Last Admin: 07/23/16 05:35 Dose: 25 mcg Pantoprazole Sodium (Protonix Inj) 40 mg IVP DAILY [facility] Last Admin: 07/23/16 09:32 Dose: 40 mg Potassium Chloride (Potassium Chloride Oral Soln) 40 meq PO ONCE PRN PRN Reason: low potasium Last Admin: 07/21/16 19:00 Dose: 40 meq Primidone (Mysoline) 250 mg PO Q12 [facility] Last Admin: 07/23/16 09:32 Dose: 250 mg Quetiapine Fumarate (Seroquel) 300 mg PO HS [facility] Last Admin: 07/22/16 22:53 Dose: 300 mg - Labs Labs: 07/23/16 08:15 07/23/16 08:15 PT 14.3 SECONDS (9.7-12.2) H 07/20/16 06:46 INR 1.3 07/20/16 06:46 APTT 27 SECONDS (21-34) 07/20/16 06:46 Assessment and Plan - Assessment and Plan (Free Text) Assessment: Patient is cleared by DR Lopez and DR Medeiros for discharge to rehab for physical therapy. Advised to follow up in the office of DR Lopez and DR Medeiros once stable. Instructed to follow up with cbc every 3 days in the rehab.
[2016-07-23 20:25] VITALS: BP 131/66; PULSE 86
[2016-07-24] MEDS ORDERED: Pantoprazole 40 mg EC Tab PO SCH (10:00)
--- NOTE | 2016-09-13 18:37 | DS ---
CHIEF COMPLAINT: Weakness, fatigue, and abdominal pain. HISTORY OF PRESENT ILLNESS: The patient came to the hospital for admission. The patient was treated with antibiotics, supportive care, *------* improvement, discharged to be followed as an outpatient. Juli Montes MD
== END 2016-07-23 19:45 | DRG 699 ==
LOC: C.ER 12:52 → C.9E 17:14 → C.3T 20:57
PROVIDERS: ADMIT Internal Medicine Pulmonary Disease; ATTEND Internal Medicine Pulmonary Disease
PROC: 0DB68ZX Excision of Stomach, Via Natural or Artificial Opening Endoscopic, Diagnostic (ICD-10-PCS; 2016-07-20)
PROC: 30233N1 Transfusion of Nonautologous Red Blood Cells into Peripheral Vein, Percutaneous Approach (ICD-10-PCS; principal; 2016-07-20 10:25)
PROC: 0DBH8ZX Excision of Cecum, Via Natural or Artificial Opening Endoscopic, Diagnostic (ICD-10-PCS; 2016-07-21)
DX: N28.89 Other specified disorders of kidney and ureter (principal); D64.9 Anemia, unspecified; R62.7 Adult failure to thrive; E87.2 Acidosis; N39.0 Urinary tract infection, site not specified; T80.89XA Other complications following infusion, transfusion and therapeutic injection, initial encounter; R50.9 Fever, unspecified; I10 Essential (primary) hypertension; K29.00 Acute gastritis without bleeding; K57.30 Diverticulosis of large intestine without perforation or abscess without bleeding; E03.9 Hypothyroidism, unspecified; F25.0 Schizoaffective disorder, bipolar type; K44.9 Diaphragmatic hernia without obstruction or gangrene; K29.80 Duodenitis without bleeding; R29.6 Repeated falls; R19.7 Diarrhea, unspecified; K64.4 Residual hemorrhoidal skin tags

== ENCOUNTER 2016-07-30 12:26 | Inpatient (IN) | payer MEDICARE, MEDICAID ==
[2016-07-30] MEDS ORDERED: Sodium Chloride 0.9% 1,000 ML IV ONE (13:28)
[2016-07-30] MEDS ORDERED: cefTRIAXone IV 1 gm in Dextros 50 ML IV ONE (13:29)
[2016-07-30] MEDS ORDERED: Sodium Chloride 0.9% 1,000 ML ONE (13:41)
[2016-07-30] MEDS ORDERED: cefTRIAXone IV 1 gm in Dextros 50 ML IVPB ONE (13:41)
[2016-07-30 14:05] LABS: BASO # 0.1 K/uL (0.0-0.2); BASO % 0.5 % (0.0-2.0); EOS # 0.2 K/uL (0.0-0.7); EOS % 1.5 % (0.0-4.0); HEMATOCRIT 27.5 % (34.0-47.0); LYMPH # 1.2 K/uL (1.0-4.3); MEAN CELL VOLUME 76.3 fL (81.0-99.0); MEAN CORPUSCULAR HEMOGLOBIN 24.5 pg (27.0-31.0); MEAN CORPUSCULAR HGB CONC 32.1 g/dL (33.0-37.0); MEAN PLATELET VOLUME 9.9 fL (7.2-11.7); MONO # 0.5 K/uL (0.0-0.8); MONO % 4.6 % (0.0-10.0); RED CELL DISTRIBUTION WIDTH 19.8 % (11.5-14.5); WHITE BLOOD COUNT 10.7 K/uL (4.8-10.8)
[2016-07-30 14:12] LABS: CHLORIDE 95 mmol/L (98-107)
[2016-07-30 14:13] LABS: POTASSIUM 5.2 mmol/L (3.6-5.2); SODIUM 129 mmol/L (132-148)
[2016-07-30 14:15] LABS: ALB/GLOB RATIO 0.8 (1.0-2.1); AST/SGOT 51 U/L (14-36); BILIRUBIN,TOTAL 0.5 mg/dL (0.2-1.3); BLOOD UREA NITROGEN 19 mg/dL (7-17); CARBON DIOXIDE 23 mmol/L (22-30); GFR AFRICAN-AMERICAN 54; TOTAL PROTEIN 6.8 g/dL (6.3-8.3)
[2016-07-30 14:16] LABS: ALKALINE PHOSPHATASE 242 U/L (38-126); ALT/SGPT 43 U/L (9-52); CALCIUM 8.9 mg/dl (8.6-10.4); GLUCOSE,RANDOM 104 mg/dL (65-105)
[2016-07-30 14:49] LABS: RBC URINE 2 /hpf (0-3); URINE BACTERIA MANY (<OCC); URINE BILIRUBIN NEGATIVE (NEGATIVE); URINE BLOOD NEGATIVE (NEGATIVE); URINE COLOR Yellow (YELLOW); URINE GLUCOSE (UA) NORMAL (Normal); URINE KETONE NEGATIVE (NEGATIVE); URINE LEUKOCYTE ESTERASE 3+ Leu/uL (Negative); URINE PROTEIN NEGATIVE (NEGATIVE); URINE UROBILINOGEN NORMAL mg/dL (0.2-1.0); WBC URINE 100 /hpf (0-5)
--- NOTE | 2016-07-30 15:05 | RAD ---
PROCEDURE: CHEST RADIOGRAPH, 1 VIEW portable study 13:40. HISTORY: SOB COMPARISON: None available. FINDINGS: LUNGS: Clear. PLEURA: No pneumothorax or pleural fluid seen. CARDIOVASCULAR: Cardiomegaly. No evidence of acute, significant cardiovascular disease. OSSEOUS STRUCTURES: No significant abnormalities. VISUALIZED UPPER ABDOMEN: Normal. OTHER FINDINGS: None. IMPRESSION: No active disease. No acute/significant interval changes. Concordant results with the preliminary interpretation rendered by the emergency department physician procedure.
--- NOTE | 2016-07-30 15:21 | C.PDOC ---
History Of Present Illness 70 yr old female brought in b via EMS from [facility], presents to the ER for evaluation of fever and lethargy. Patient has a history UTIs and frequent falls. Denies chest pain, SOB, nausea, vomiting, abdominal pain, diarrhea, dysuria, weakness or numbness. Time Seen by Provider: 07/30/16 13:24 Chief Complaint (Nursing): Fever History Per: Patient History/Exam Limitations: no limitations Onset/Duration Of Symptoms: Days Past Medical History Reviewed: Historical Data, Nursing Documentation, Vital Signs Vital Signs: Last Vital Signs Temp 99.0 F 07/30/16 15:52 Pulse 86 07/30/16 15:52 Resp 20 07/30/16 15:52 BP 111/75 07/30/16 15:52 Pulse Ox 98 07/30/16 15:52 - Medical History PMH: Arthritis (knees), HTN, Hypothyroidism - [facility] Procedures EXCISION OF CECUM, ENDO, DIAGN (07/19/16) EXCISION OF STOMACH, ENDO, DIAGN (07/19/16) TRANSFUSE NONAUT RED BLOOD CELLS IN PERIPH VEIN, PERC (07/19/16) Family History: States: No Known Family Hx - Social History Hx Alcohol Use: No Hx Substance Use: No - Immunization History Hx Tetanus Toxoid Vaccination: No Hx Influenza Vaccination: No Hx Pneumococcal Vaccination: No Review Of Systems Except As Marked, All Systems Reviewed And Found Negative. Constitutional: Positive for: Fever (Subjective), Other ((+) lethargy) Physical Exam - Physical Exam Appears: Well, Non-toxic, No Acute Distress, Other ((+) Obese ) Skin: Warm, Dry, No Rash Head: Atraumatic, Normacephalic Eye(s): bilateral: Normal Inspection, PERRL, EOMI Oral Mucosa: Moist Neck: Normal, Normal ROM, Supple Chest: Symmetrical, No Tenderness Cardiovascular: Rhythm Regular, No Murmur Respiratory: Normal Breath Sounds, No Rales, No Rhonchi, No Wheezing Gastrointestinal/Abdominal: Normal Exam, Soft, No Tenderness, No Guarding, No Rebound Extremity: Normal ROM, No Swelling Neurological/Psych: Oriented x3, Normal Speech, Normal Motor ED Course And Treatment - Laboratory Results Result Diagrams: 07/30/16 13:58 07/30/16 13:58 Lab Interpretation: Abnormal (UA 100 WBC's) ECG: Interpreted By Me ECG Rhythm: Sinus Rhythm ECG Interpretation: Normal Rate From EC O2 Sat by Pulse Oximetry: 95 Pulse Ox Interpretation: Normal - Radiology CXR: Interpreted by Me CXR Interpretation: Yes: No Acute Disease - Other Rad CXR X-Ray: Viewed By Me, Read By Radiologist Interpretation: PROCEDURE: CHEST RADIOGRAPH, 1 VIEW portable study 13:40. HISTORY: SOB. COMPARISON: None available. FINDINGS: LUNGS: Clear. PLEURA : No pneumothorax or pleural fluid seen. CARDIOVASCULAR: Cardiomegaly. No evidence of acute, significant cardiovascular disease. OSSEOUS STRUCTURES: No significant abnormalities. VISUALIZED UPPER ABDOMEN: Normal. OTHER FINDINGS: None. IMPRESSION: No active disease. No acute/significant interval changes. . Concordant results with the preliminary interpretation rendered by the emergency department physician\PRUDENCE at the conclusion of the procedure. - CT Scan/US CT - Angio Chest Other Rad Studies (CT/US): Read By Radiologist, Radiology Report Reviewed CT/US Interpretation: PROCEDURE: CT Chest with contrast (Pulmonary Angiogram). HISTORY: weak, sob. COMPARISON: None available. TECHNIQUE: Axial computed tomography images were obtained of the chest in the pulmonary arterial phase of enhancement. Coronal and sagittal reformatted images were created and reviewed. Intravenous contrast dose: 100 mL Visipaque 320. Radiation dose: Total exam DLP = 543.18 mGy-cm. This CT exam was performed using one or more of the following dose reduction techniques: Automated exposure control, adjustment of the mA and/or kV according to patient size, and/or use of iterative reconstruction technique. FINDINGS: PULMONARY ARTERIES: The examination is technically limited for evaluation of subsegmental pulmonary artery branches. There are widespread pulmonary artery filling defects identified. These are seen in the right lower lobe pulmonary artery and branches. Filling defects are seen in the right middle lobe pulmonary artery. There are filling defect seen in the left upper lobe pulmonary artery and in the left lower lobe. There is no large central thrombus. AORTA: No acute findings. No thoracic aortic aneurysm. LUNGS: There is left lower lobe subsegmental atelectasis. There is linear scar or atelectasis in the right lower lobe. PLEURAL SPACES: There is trace left pleural effusion. There is no pneumothorax. HEART: Unremarkable. No cardiomegaly. No significant pericardial effusion. There is straightening of the interventricular septum which may reflect right ventricular strain. Please correlate with EKG findings. LYMPH NODES: No lymphadenopathy. BONES, CHEST WALL: Unremarkable. No fracture or destructive lesion. OTHER FINDINGS: Multiple nodular hepatic calcifications which may be dystrophic or represent granulomatous calcification. Multiple left renal cyst only partially included in this examination. IMPRESSION: Extensive pulmonary artery embolism bilaterally. Technically limited examination for evaluation of subsegmental pulmonary artery branches. No large central thrombus identified. Straightening of the interventricular septum may reflect right ventricular strain. Additional minor findings as above. Progress Note: IVF's, rocephin IV Reevaluation Time: 15:30 Reassessment Condition: Improved - Physician Consult Information Outcome Of Conversation: 1530: d/w Dr. Kwabena rosario to med/surg Obs. Medical Decision Making Medical Decision Making: PLAN: * CT - Angio Chest * CXR * EKG * Troponin * D-Dimer * CBC * CMP * Urinalysis * Tylenol PO * Rocephin IV * Sodium Chloride IV * 1530: UTI, ? Pyelo, mild hyponatremia prob due to dehydration. Disposition Doctor Will See Patient In The: Hospital Counseled Patient/Family Regarding: Studies Performed, Diagnosis - Disposition Disposition: HOSPITALIZED Disposition Time: 15:33 Condition: FAIR - Clinical Impression Clinical Impression: Pyelonephritis, Dehydration, Anemia, chronic disease - Scribe Statement The provider has reviewed the documentation as recorded by the Светлана Cadena Provider Attestation: All medical record entries made by the Светлана were at my direction and personally dictated by me. I have reviewed the chart and agree that the record accurately reflects my personal performance of the history, physical exam, medical decision making, and the department course for this patient. I have also personally directed, reviewed, and agree with the discharge instructions and disposition.
[2016-07-30] MEDS ORDERED: Iodixanol 320 MG/ML 100 ML BOTTLE IV ONE (15:59)
--- NOTE | 2016-07-30 16:57 | CT ---
PROCEDURE: CT Chest with contrast (Pulmonary Angiogram) HISTORY: weak, sob COMPARISON: None available. TECHNIQUE: Axial computed tomography images were obtained of the chest in the pulmonary arterial phase of enhancement. Coronal and sagittal reformatted images were created and reviewed. Intravenous contrast dose: 100 mL Visipaque 320 Radiation dose: Total exam DLP = 543.18 mGy-cm. This CT exam was performed using one or more of the following dose reduction techniques: Automated exposure control, adjustment of the mA and/or kV according to patient size, and/or use of iterative reconstruction technique. FINDINGS: PULMONARY ARTERIES: The examination is technically limited for evaluation of subsegmental pulmonary artery branches. There are widespread pulmonary artery filling defects identified. These are seen in the right lower lobe pulmonary artery and branches. Filling defects are seen in the right middle lobe pulmonary artery. There are filling defect seen in the left upper lobe pulmonary artery and in the left lower lobe. There is no large central thrombus. AORTA: No acute findings. No thoracic aortic aneurysm. LUNGS: There is left lower lobe subsegmental atelectasis. There is linear scar or atelectasis in the right lower lobe. PLEURAL SPACES: There is trace left pleural effusion. There is no pneumothorax. HEART: Unremarkable. No cardiomegaly. No significant pericardial effusion. There is straightening of the interventricular septum which may reflect right ventricular strain. Please correlate with EKG findings. LYMPH NODES: No lymphadenopathy. BONES, CHEST WALL: Unremarkable. No fracture or destructive lesion OTHER FINDINGS: Multiple nodular hepatic calcifications which may be dystrophic or represent granulomatous calcification. Multiple left renal cyst only partially included in this examination. IMPRESSION: Extensive pulmonary artery embolism bilaterally. Technically limited examination for evaluation of subsegmental pulmonary artery branches. No large central thrombus identified. Straightening of the interventricular septum may reflect right ventricular strain. Additional minor findings as above.
[2016-07-30] MEDS: Sodium Chloride 0.9% 1,000 ML IV SCH (19:30)
[2016-07-30] MEDS: Enoxaparin 80 mg Syringe SC SCH (19:30)
[2016-07-31] MEDS: Enoxaparin 80 mg Syringe SC SCH ×2 (06:24→20:03)
--- NOTE | 2016-07-31 07:07 | CP.PCM.CON ---
History of Present Illness - History of Present Illness History of Present Illness: discussed clincal history and CT scan findings with nursing staff. full consult to follow. Past Patient History - Past Medical History & Family History Past Medical History?: Yes - Past Social History Smoking Status: Former Smoker - CARDIAC Hx Hypertension: Yes - PULMONARY Hx Respiratory Disorders: No - NEUROLOGICAL Hx Neurological Disorder: No - HEENT Hx HEENT Problems: No - RENAL Hx Chronic Kidney Disease: No - ENDOCRINE/METABOLIC Hx Hypothyroidism: Yes - HEMATOLOGICAL/ONCOLOGICAL Hx Blood Disorders: No - INTEGUMENTARY Hx Dermatological Problems: No - MUSCULOSKELETAL/RHEUMATOLOGICAL Hx Arthritis: Yes (knees) Hx Falls: Yes - GASTROINTESTINAL Hx Gastrointestinal Disorders: No - GENITOURINARY/GYNECOLOGICAL Hx Genitourinary Disorders: Yes Hx Urinary Tract Infection: Yes Other/Comment: renal tumor - PSYCHIATRIC Hx Substance Use: No - SURGICAL HISTORY Hx Surgeries: No - ANESTHESIA Hx Anesthesia: No Hx Anesthesia Reactions: No Meds Allergies/Adverse Reactions: Allergies Allergy/AdvReac Type Severity Reaction Status Date / Time No Known Allergies Allergy Verified 07/30/16 12:37 - Medications Medications: Current Medications Acetaminophen (Tylenol 325mg Tab) 650 mg PO Q4 PRN PRN Reason: Fever >100.4 F Last Admin: 07/30/16 20:19 Dose: 650 mg Enoxaparin Sodium (Lovenox) 70 mg SC Q12H [facility] Last Admin: 07/31/16 06:24 Dose: 70 mg Hydroxyzine HCl (Atarax) 25 mg PO Q6 PRN PRN Reason: Anxiety Ceftriaxone Sodium 1 gm/ (Sodium Chloride) 100 mls @ 100 mls/hr IVPB DAILY [facility] Sodium Chloride (Sodium Chloride 0.9%) 1,000 mls @ 80 mls/hr IV .[id number] [facility] Last Admin: 07/30/16 19:30 Dose: 80 mls/hr Levothyroxine Sodium (Synthroid) 25 mcg PO DAILY [facility] Pantoprazole Sodium (Protonix Ec Tab) 40 mg PO DAILY [facility] Primidone (Mysoline) 250 mg PO Q12 [facility] Last Admin: 07/30/16 21:07 Dose: 250 mg Quetiapine Fumarate (Seroquel) 300 mg PO HS [facility] Last Admin: 07/30/16 21:06 Dose: 300 mg Results - Vital Signs Recent Vital Signs: Last Vital Signs Temp 97.6 F 07/31/16 00:08 Pulse 87 07/31/16 00:08 Resp 20 07/31/16 00:08 BP 122/75 07/31/16 00:08 Pulse Ox 97 07/31/16 00:08 - Labs Result Diagrams: 07/30/16 13:58 07/30/16 13:58
[2016-07-31] MEDS: Sodium Chloride 0.9% 1,000 ML IV SCH ×2 (08:44→08:46)
[2016-07-31] MEDS: Pantoprazole 40 mg EC Tab PO SCH (10:24)
[2016-08-01] MEDS: Levothyroxine 25 MCG TAB PO SCH (06:09)
[2016-08-01] MEDS: Enoxaparin 80 mg Syringe SC SCH ×2 (06:09→18:15)
--- NOTE | 2016-08-01 08:18 | CP.PCM.CON ---
History of Present Illness - History of Present Illness History of Present Illness: I was asked to see patient by Dr Montes. Patient is a 70 [facility] female [facility] resident who presents with fever. She is being managed for a TI. She is currently on antibiotic therapy and has been febrile. CT scan of the chest revealed multiple pulmonary emboli. She currently denies dyspnea. Review of Systems - Constitutional Constitutional: Fever - EENT Eyes: absent: As Per HPI, Blind Spots, Blurred Vision, Change in Vision, Decreased Night Vision, Diplopia, Discharge, Dry Eye, Exophthalmos, Floaters, Irritation, Itchy Eyes, Loss of Peripheral Vision, Pain, Photophobia, Requires Corrective Lenses, Sees Flashes, Spots in Vision, Tunnel Vision, Other Visual Disturbances, Loss of Vision, Other Ears: absent: As Per HPI, Decreased Hearing, Ear Discharge, Ear Pain, Tinnitus, Abnormal Hearing, Disequilibrium, Dizziness, Other Nose/Mouth/Throat: absent: As Per HPI, Epistaxis, Nasal Congestion, Nasal Discharge, Nasal Obstruction, Nasal Trauma, Nose Pain, Post Nasal Drip, Sinus Pain, Sinus Pressure, Bleeding Gums, Change in Voice, Dental Pain, Dry Mouth, Dysphagia, Halitosis, Hoarsness, Lip Swelling, Mouth Lesions, Mouth Pain, Odynophagia, Sore Throat, Throat Swelling, Tongue Swelling, Facial Pain, Neck Pain, Neck Mass, Other - Cardiovascular Cardiovascular: absent: As Per HPI, Acrocyanosis, Chest Pain, Chest Pain at Rest , Chest Pain with Activity, Claudication, Diaphoresis, Dyspnea, Dyspnea on Exertion, Edema, Irregular Heart Rhythm, Pain Radiating to Arm/Neck/Jaw, Leg Edema, Leg Ulcers, Lightheadedness, Orthopnea, Palpitations, Paroxysmal Nocturnal Dyspnea, Pedal Edema, Radiating Pain, Rapid Heart Rate, Slow Heart Rate, Syncope, Other - Respiratory Respiratory: absent: As Per HPI, Cough, Dyspnea, Hemoptysis, Dyspnea on Exertion , Wheezing, Snoring, Stridor, Pain on Inspiration, Chest Congestion, Excessive Mucous Production, Change in Mucous Color, Pain with Coughing, Other - Gastrointestinal Gastrointestinal: absent: As Per HPI, Abdominal Pain, Belching, Bloating, Change in Bowel Habits, Change in Stool Character, Coffee Ground Emesis, Constipation, Cramping, Diarrhea, Dyspepsia, Dysphagia, Early Satiety, Excessive Flatus, Fecal Incontinence, Heartburn, Hematemesis, Hematochezia, Loose Stools, Melena, Nausea, Odynophagia, Temesmus, Vomiting, Other - Genitourinary Genitourinary: absent: As Per HPI, Change in Urinary Stream, Difficulty Urinating, Dysuria, Flank Pain, Hematuria, Pyuria, Nocturia, Urinary Incontinence, Urinary Frequency, Urinary Hesitance, Urinary Urgency, Voiding Freq/Small Amts, Freq UTI, Hx Renal/Bladder Calculi, Hx /Renal Surgery, Bladder Distension, Other - Musculoskeletal Musculoskeletal: absent: As Per HPI, Abnormal Gait, Arthralgias, Atrophy, Back Pain, Deformity, Joint Swelling, Limited Range of Motion, Loss of Height, Muscle Cramps, Muscle Weakness, Myalgias, Neck Pain, Numbness, Radiating Pain into Limb, Stiffness, Tingling, Other - Integumentary Integumentary: absent: As Per HPI, Acne, Alopecia, Bleeding Lesions, Change in Hair, Change in Nails, Change in Pigmentation, Changing Lesions, Dry Skin, Erythema, Furuncle, Hirsutism, Lesions, New Lesions, Non-Healing Lesions, Photosensitivity, Pruritus, Rash, Skin Pain, Skin Ulcer, Sores, Striae, Swelling , Unusual Bruising, Wounds, Jaundice, Other - Neurological Neurological: absent: As Per HPI, Abnormal Gait, Abnormal Hearing, Abnormal Movements, Abnormal Speech, Behavioral Changes, Burning Sensations, Confusion, Convulsions, Disequilibrium, Dizziness, Numbness, Focal Weakness, Frequent Falls , Headaches, Lack of Coordination, Loss of Vision, Memory Loss, Paresthesias, Radicular Pain, Restless Legs, Sensory Deficit, Syncope, Tingling, Tremor, Vertigo, Weakness, Other Visual Disturbances, Other - Psychiatric Psychiatric: absent: As Per HPI, Abnormal Sleep Pattern, Anhedonia, Anxiety, Auditory Hallucinations, Behavioral Changes, Change in Appetite, Change in Libido, Confusion, Depression, Difficulty Concentrating, Hallucinations, Homicidal Ideation, Hopelessness, Irritability, Memory Loss, Mood Swings, Panic Attacks, Paranoia, Suicidal Ideation, Visual Hallucinations, Tactile Hallucinations, Other - Endocrine Endocrine: absent: As Per HPI, Change in Body Appearance, Change in Libido, Cold Intolorance, Deepening of Voice, Excessive Sweating, Fatigue, Flushing, Heat Intolorance, Increase in Ring/Shoe/Hat Size, Palpitations, Polydipsia, Polyphagia, Polyuria, Other - Hematologic/Lymphatic Hematologic: absent: As Per HPI, Easy Bleeding, Easy Bruising, Lymphadenopathy, Other Past Patient History - Past Medical History & Family History Past Medical History?: Yes - Past Social History Smoking Status: Former Smoker - CARDIAC Hx Hypertension: Yes - PULMONARY Hx Respiratory Disorders: No - NEUROLOGICAL Hx Neurological Disorder: No - HEENT Hx HEENT Problems: No - RENAL Hx Chronic Kidney Disease: No - ENDOCRINE/METABOLIC Hx Hypothyroidism: Yes - HEMATOLOGICAL/ONCOLOGICAL Hx Blood Disorders: No - INTEGUMENTARY Hx Dermatological Problems: No - MUSCULOSKELETAL/RHEUMATOLOGICAL Hx Arthritis: Yes (knees) - GASTROINTESTINAL Hx Gastrointestinal Disorders: No - GENITOURINARY/GYNECOLOGICAL Hx Genitourinary Disorders: Yes Hx Urinary Tract Infection: Yes Other/Comment: renal tumor - PSYCHIATRIC Hx Substance Use: No - SURGICAL HISTORY Hx Surgeries: No - ANESTHESIA Hx Anesthesia: No Hx Anesthesia Reactions: No Meds Allergies/Adverse Reactions: Allergies Allergy/AdvReac Type Severity Reaction Status Date / Time No Known Allergies Allergy Verified 07/30/16 12:37 - Medications Medications: Current Medications Acetaminophen (Tylenol 325mg Tab) 650 mg PO Q4 PRN PRN Reason: Fever >100.4 F Last Admin: 08/01/16 07:46 Dose: 650 mg Enoxaparin Sodium (Lovenox) 70 mg SC Q12H [facility] Last Admin: 08/01/16 06:09 Dose: 70 mg Hydroxyzine HCl (Atarax) 25 mg PO Q6 PRN PRN Reason: Anxiety Ceftriaxone Sodium 1 gm/ (Sodium Chloride) 100 mls @ 100 mls/hr IVPB DAILY [facility] Last Admin: 07/31/16 10:25 Dose: 100 mls/hr Sodium Chloride (Sodium Chloride 0.9%) 1,000 mls @ 80 mls/hr IV .[id number] [facility] Last Admin: 07/31/16 08:46 Dose: Not Given Levothyroxine Sodium (Synthroid) 25 mcg PO DAILY@0630 [facility] Last Admin: 08/01/16 06:09 Dose: 25 mcg Pantoprazole Sodium (Protonix Ec Tab) 40 mg PO DAILY [facility] Last Admin: 07/31/16 10:24 Dose: 40 mg Primidone (Mysoline) 250 mg PO Q12 [facility] Last Admin: 07/31/16 22:44 Dose: 250 mg Quetiapine Fumarate (Seroquel) 300 mg PO HS [facility] Last Admin: 07/31/16 22:44 Dose: 300 mg Physical Exam - Constitutional Appears: Non-toxic - Head Exam Head Exam: NORMAL INSPECTION - Eye Exam Eye Exam: Normal appearance - ENT Exam ENT Exam: Mucous Membranes Moist - Neck Exam Neck exam: Positive for: Full Rom - Respiratory Exam Respiratory Exam: NORMAL BREATHING PATTERN - Cardiovascular Exam Cardiovascular Exam: REGULAR RHYTHM - GI/Abdominal Exam GI & Abdominal Exam: Normal Bowel Sounds - Rectal Exam Rectal Exam: Deferred - Extremities Exam Extremities exam: Positive for: pedal edema - Back Exam Back exam: NORMAL INSPECTION - Neurological Exam Neurological exam: Alert, Oriented x3 - Psychiatric Exam Psychiatric exam: Normal Affect - Skin Skin Exam: Normal Color Results - Vital Signs Recent Vital Signs: Last Vital Signs Temp 102.7 F H 08/01/16 07:46 Pulse 96 H 08/01/16 07:53 Resp 20 08/01/16 07:53 BP 93/64 L 08/01/16 07:53 Pulse Ox 95 08/01/16 07:53 - Labs Result Diagrams: 07/30/16 13:58 07/30/16 13:58 - EKG Data EKG Interpreted by: Myself EKG shows normal: Sinus rhythm Assessment & Plan (1) Pulmonary emboli Assessment and Plan: patient has a history of renal carncer, which puts her at increaed risk of embolic phemnomena. would recommend placement of IVC filter. patient has been febrile, therefore will need to defervesce. She laso states she has a sister therefore I will await discussion with her. Status: Acute
--- NOTE | 2016-08-01 10:17 | CP.PCM.PN ---
Subjective - Date & Time of Evaluation Date of Evaluation: 08/01/16 Time of Evaluation: 10:05 - Subjective Subjective: patient has no current complaints. Patient's sister is at the bedside. Objective - Vital Signs/Intake and Output Vital Signs (last 24 hours): Temp Pulse Resp BP Pulse Ox 102.7 F H 96 H 20 93/64 L 95 08/01/16 07:46 08/01/16 07:53 08/01/16 07:53 08/01/16 07:53 08/01/16 07:53 Intake and Output: 08/01/16 08/01/16 06:59 18:59 Intake Total 920 880 Balance 920 880 - Medications Medications: Current Medications Acetaminophen (Tylenol 325mg Tab) 650 mg PO Q4 PRN PRN Reason: Fever >100.4 F Last Admin: 08/01/16 07:46 Dose: 650 mg Enoxaparin Sodium (Lovenox) 70 mg SC Q12H [facility] Last Admin: 08/01/16 06:09 Dose: 70 mg Hydroxyzine HCl (Atarax) 25 mg PO Q6 PRN PRN Reason: Anxiety Sodium Chloride (Sodium Chloride 0.9%) 1,000 mls @ 80 mls/hr IV .[id number] [facility] Last Admin: 07/31/16 08:46 Dose: Not Given Imipenem/Cilastatin Sodium 500 (mg/ Sodium Chloride) 100 mls @ 100 mls/hr IVPB Q6H [facility] Last Admin: 08/01/16 09:50 Dose: 100 mls/hr Levothyroxine Sodium (Synthroid) 25 mcg PO DAILY@0630 [facility] Last Admin: 08/01/16 06:09 Dose: 25 mcg Pantoprazole Sodium (Protonix Ec Tab) 40 mg PO DAILY [facility] Last Admin: 07/31/16 10:24 Dose: 40 mg Primidone (Mysoline) 250 mg PO Q12 [facility] Last Admin: 07/31/16 22:44 Dose: 250 mg Quetiapine Fumarate (Seroquel) 300 mg PO HS [facility] Last Admin: 07/31/16 22:44 Dose: 300 mg - Constitutional Appears: Non-toxic - Head Exam Head Exam: NORMAL INSPECTION - Eye Exam Eye Exam: Normal appearance - ENT Exam ENT Exam: Mucous Membranes Moist - Neck Exam Neck Exam: Full ROM - Respiratory Exam Respiratory Exam: Decreased Breath Sounds - Cardiovascular Exam Cardiovascular Exam: REGULAR RHYTHM - GI/Abdominal Exam GI & Abdominal Exam: Normal Bowel Sounds - Rectal Exam Rectal Exam: Deferred - Extremities Exam Extremities Exam: absent: Pedal Edema - Back Exam Back Exam: NORMAL INSPECTION - Neurological Exam Neurological Exam: Alert - Psychiatric Exam Psychiatric exam: Normal Affect - Skin Skin Exam: Normal Color Assessment and Plan (1) Pulmonary emboli Assessment & Plan: discussedwith patient and sister at length. Recommend IVC filter for further protection from future pulmonary emboli. patient and sister understand and agree. patient will need continued antibiotic therapy, will plan for early next week. Status: Acute
[2016-08-01] MEDS: Pantoprazole 40 mg EC Tab PO SCH (10:23)
[2016-08-01] MEDS: Sodium Chloride 0.9% 1,000 ML IV SCH ×2 (10:24→21:58)
[2016-08-01] MEDS ORDERED: Vancomycin 1 gm/NS 200 ml 1 GM/200 ML BAG IVPB STA (11:33)
--- NOTE | 2016-08-01 14:31 | CP.PCM.CON ---
History of Present Illness - History of Present Illness History of Present Illness: 70 yr old female brought in b via EMS from a [facility], presents to the ER for evaluation of fever and lethargy. Patient has a history UTIs and frequent falls. Denies chest pain, SOB, nausea, vomiting, abdominal pain, diarrhea, dysuria, weakness or numbness. ON ADMISSION DX WITH PE HX OF RENAL CELL CARCINOMA IN NEED OF NEPHRECTOMY, RECURRENT UTI - Medical History PMH: Arthritis (knees), HTN, Hypothyroidism - [facility] Procedures EXCISION OF CECUM, ENDO, DIAGN (07/19/16) EXCISION OF STOMACH, ENDO, DIAGN (07/19/16) TRANSFUSE NONAUT RED BLOOD CELLS IN PERIPH VEIN, PERC (07/19/16) Review of Systems - Constitutional Constitutional: As Per HPI, Anorexia, Fever, Malaise - EENT Eyes: absent: As Per HPI, Blind Spots, Blurred Vision, Change in Vision, Decreased Night Vision, Diplopia, Discharge, Dry Eye, Exophthalmos, Floaters, Irritation, Itchy Eyes, Loss of Peripheral Vision, Pain, Photophobia, Requires Corrective Lenses, Sees Flashes, Spots in Vision, Tunnel Vision, Other Visual Disturbances, Loss of Vision, Other Ears: absent: As Per HPI, Decreased Hearing, Ear Discharge, Ear Pain, Tinnitus, Abnormal Hearing, Disequilibrium, Dizziness, Other Nose/Mouth/Throat: absent: As Per HPI, Epistaxis, Nasal Congestion, Nasal Discharge, Nasal Obstruction, Nasal Trauma, Nose Pain, Post Nasal Drip, Sinus Pain, Sinus Pressure, Bleeding Gums, Change in Voice, Dental Pain, Dry Mouth, Dysphagia, Halitosis, Hoarsness, Lip Swelling, Mouth Lesions, Mouth Pain, Odynophagia, Sore Throat, Throat Swelling, Tongue Swelling, Facial Pain, Neck Pain, Neck Mass, Other - Breasts Breasts: absent: As Per HPI, Change in Shape, Mass, Pain, Nipple Discharge, Nipple Inversion, Skin Changes, Swelling, Other - Cardiovascular Cardiovascular: absent: As Per HPI, Acrocyanosis, Chest Pain, Chest Pain at Rest , Chest Pain with Activity, Claudication, Diaphoresis, Dyspnea, Dyspnea on Exertion, Edema, Irregular Heart Rhythm, Pain Radiating to Arm/Neck/Jaw, Leg Edema, Leg Ulcers, Lightheadedness, Orthopnea, Palpitations, Paroxysmal Nocturnal Dyspnea, Pedal Edema, Radiating Pain, Rapid Heart Rate, Slow Heart Rate, Syncope, Other - Respiratory Respiratory: As Per HPI, Cough, Dyspnea. absent: Hemoptysis - Gastrointestinal Gastrointestinal: absent: As Per HPI, Abdominal Pain, Belching, Bloating, Change in Bowel Habits, Change in Stool Character, Coffee Ground Emesis, Constipation, Cramping, Diarrhea, Dyspepsia, Dysphagia, Early Satiety, Excessive Flatus, Fecal Incontinence, Heartburn, Hematemesis, Hematochezia, Loose Stools, Melena, Nausea, Odynophagia, Temesmus, Vomiting, Other - Genitourinary Genitourinary: As Per HPI - Reproductive: Female Reproductive:Female: absent: As Per HPI, Amenorrhea, Amenorrhea/ Control, Currently Menstual, Cycle <21 Days, Cycle >35 Days, Cycle Variable, Menses 1-7 Days, Menses >/= 8 Days, Menses Variable, Cycle > 4 Weeks Between, No Menses for 6 Months, Heavy Menses, Light Menses, Normal Menses, Spotting Between Cycles , S/P Hysterectomy, Menopausal, Post Menopausal, Premenarche, Abnormal Vaginal Bleeding, Dysmenorrhea, Dyspareunia, Genital Lesions, Genital Pruritis, Pelvic Pain, Prolapse Symptoms, Sexual Dysfunction, Vaginal Discharge, Vaginal Dryness , Vaginal Odor, Vaginal Pruritis, Other - Menstruation Menstruation: absent: As Per HPI, Amenorrhea, Amenorrhea/ Control, Currently Menstual, Cycle <21 Days, Cycle >35 Days, Cycle Variable, Menses 1-7 Days, Menses >/= 8 Days, Menses Variable, Cycle > 4 Weeks Between, No Menses for 6 Months, Heavy Menses, Light Menses, Normal Menses, Spotting Between Cycles , S/P Hysterectomy, Menopausal, Post Menopausal, Premenarche, Abnormal Vaginal Bleeding, Dysmenorrhea, Other - Musculoskeletal Musculoskeletal: absent: As Per HPI, Abnormal Gait, Arthralgias, Atrophy, Back Pain, Deformity, Joint Swelling, Limited Range of Motion, Loss of Height, Muscle Cramps, Muscle Weakness, Myalgias, Neck Pain, Numbness, Radiating Pain into Limb, Stiffness, Tingling, Other - Integumentary Integumentary: absent: As Per HPI, Acne, Alopecia, Bleeding Lesions, Change in Hair, Change in Nails, Change in Pigmentation, Changing Lesions, Dry Skin, Erythema, Furuncle, Hirsutism, Lesions, New Lesions, Non-Healing Lesions, Photosensitivity, Pruritus, Rash, Skin Pain, Skin Ulcer, Sores, Striae, Swelling , Unusual Bruising, Wounds, Jaundice, Other - Neurological Neurological: absent: As Per HPI, Abnormal Gait, Abnormal Hearing, Abnormal Movements, Abnormal Speech, Behavioral Changes, Burning Sensations, Confusion, Convulsions, Disequilibrium, Dizziness, Numbness, Focal Weakness, Frequent Falls , Headaches, Lack of Coordination, Loss of Vision, Memory Loss, Paresthesias, Radicular Pain, Restless Legs, Sensory Deficit, Syncope, Tingling, Tremor, Vertigo, Weakness, Other Visual Disturbances, Other - Psychiatric Psychiatric: absent: As Per HPI, Abnormal Sleep Pattern, Anhedonia, Anxiety, Auditory Hallucinations, Behavioral Changes, Change in Appetite, Change in Libido, Confusion, Depression, Difficulty Concentrating, Hallucinations, Homicidal Ideation, Hopelessness, Irritability, Memory Loss, Mood Swings, Panic Attacks, Paranoia, Suicidal Ideation, Visual Hallucinations, Tactile Hallucinations, Other - Endocrine Endocrine: absent: As Per HPI, Change in Body Appearance, Change in Libido, Cold Intolorance, Deepening of Voice, Excessive Sweating, Fatigue, Flushing, Heat Intolorance, Increase in Ring/Shoe/Hat Size, Palpitations, Polydipsia, Polyphagia, Polyuria, Other - Hematologic/Lymphatic Hematologic: absent: As Per HPI, Easy Bleeding, Easy Bruising, Lymphadenopathy, Other Past Patient History - Past Medical History & Family History Past Medical History?: Yes - Past Social History Smoking Status: Former Smoker - CARDIAC Hx Hypertension: Yes - PULMONARY Hx Respiratory Disorders: No - NEUROLOGICAL Hx Neurological Disorder: No - HEENT Hx HEENT Problems: No - RENAL Hx Chronic Kidney Disease: No - ENDOCRINE/METABOLIC Hx Hypothyroidism: Yes - HEMATOLOGICAL/ONCOLOGICAL Hx Blood Disorders: No - INTEGUMENTARY Hx Dermatological Problems: No - MUSCULOSKELETAL/RHEUMATOLOGICAL Hx Arthritis: Yes (knees) - GASTROINTESTINAL Hx Gastrointestinal Disorders: No - GENITOURINARY/GYNECOLOGICAL Hx Genitourinary Disorders: Yes Hx Urinary Tract Infection: Yes Other/Comment: renal tumor - PSYCHIATRIC Hx Substance Use: No - SURGICAL HISTORY Hx Surgeries: No - ANESTHESIA Hx Anesthesia: No Hx Anesthesia Reactions: No Meds Allergies/Adverse Reactions: Allergies Allergy/AdvReac Type Severity Reaction Status Date / Time No Known Allergies Allergy Verified 07/30/16 12:37 - Medications Medications: Current Medications Acetaminophen (Tylenol 325mg Tab) 650 mg PO Q4 PRN PRN Reason: Fever >100.4 F Last Admin: 08/01/16 13:34 Dose: 650 mg Enoxaparin Sodium (Lovenox) 70 mg SC Q12H [facility] Last Admin: 08/01/16 06:09 Dose: 70 mg Hydroxyzine HCl (Atarax) 25 mg PO Q6 PRN PRN Reason: Anxiety Sodium Chloride (Sodium Chloride 0.9%) 1,000 mls @ 80 mls/hr IV .[id number] [facility] Last Admin: 08/01/16 10:24 Dose: Not Given Imipenem/Cilastatin Sodium 500 (mg/ Sodium Chloride) 100 mls @ 100 mls/hr IVPB Q6H [facility] Last Admin: 08/01/16 09:50 Dose: 100 mls/hr Vancomycin HCl 1 gm/ Sodium (Chloride) 250 mls @ 166.7 mls/hr IVPB Q24H [facility] Levothyroxine Sodium (Synthroid) 25 mcg PO DAILY@0630 [facility] Last Admin: 08/01/16 06:09 Dose: 25 mcg Pantoprazole Sodium (Protonix Ec Tab) 40 mg PO DAILY [facility] Last Admin: 08/01/16 10:23 Dose: 40 mg Primidone (Mysoline) 250 mg PO Q12 [facility] Last Admin: 08/01/16 10:24 Dose: 250 mg Quetiapine Fumarate (Seroquel) 300 mg PO HS [facility] Last Admin: 07/31/16 22:44 Dose: 300 mg Physical Exam - Constitutional Appears: Non-toxic, Chronically Ill - Head Exam Head Exam: ATRAUMATIC, NORMAL INSPECTION, NORMOCEPHALIC - Eye Exam Eye Exam: EOMI, PERRL. absent: Scleral icterus - ENT Exam ENT Exam: Mucous Membranes Dry, Normal External Ear Exam, Normal Oropharynx - Neck Exam Neck exam: Negative for: Lymphadenopathy, Thyromegaly - Respiratory Exam Respiratory Exam: Decreased Breath Sounds, Clear to Auscultation Bilateral - Cardiovascular Exam Cardiovascular Exam: REGULAR RHYTHM, +S1, +S2 - GI/Abdominal Exam GI & Abdominal Exam: Diminished Bowel Sounds, Soft. absent: Tenderness - Rectal Exam Rectal Exam: Deferred - Exam Exam: NORMAL INSPECTION - Extremities Exam Extremities exam: Positive for: pedal pulses present. Negative for: calf tenderness, pedal edema, tenderness - Back Exam Back exam: absent: CVA tenderness (L), CVA tenderness (R), paraspinal tenderness - Neurological Exam Neurological exam: Alert, CN II-XII Intact, Oriented x3, Reflexes Normal - Psychiatric Exam Psychiatric exam: Depressed - Skin Skin Exam: Dry Results - Vital Signs Recent Vital Signs: Last Vital Signs Temp 102.7 F H 08/01/16 07:46 Pulse 96 H 08/01/16 07:53 Resp 20 08/01/16 07:53 BP 93/64 L 08/01/16 07:53 Pulse Ox 95 08/01/16 07:53 - Labs Result Diagrams: 07/30/16 13:58 07/30/16 13:58 Assessment & Plan (1) Pulmonary emboli Status: Acute (2) Anemia, chronic disease Status: Acute (3) Dehydration Status: Acute (4) Pulmonary emboli Status: Acute (5) Pyelonephritis Status: Acute (6) Renal mass Status: Acute - Assessment and Plan (Free Text) Assessment: CONT IV RX FOR INFECTION' IF BLOOD CULTURES NEG THEN IVC FIILTER
--- NOTE | 2016-08-01 17:15 | PCM.URO ---
Urology Progress Note - General General: Tolerating Diet - Subjective Abdominal Pain: No Flank Pain: Yes (LEFT) Nausea: No Vomiting: No Dysuria: No Hematuria: No Chest Pain: No Fever & Chills: Yes - Objective Lab Studies: Reviewed (CREAT=1.2 HCT=27.5) Intake & Output: Intake & Output 07/31/16 08/01/16 08/01/16 18:59 06:59 18:59 Intake Total 361 799 6534 Balance 425 614 6883 Intake: Intake, IV Amount 521 013 0682 Left Antecubital 728 971 2710 Oral 240 360 480 Other: # Voids Urine, Voided 2 2 2 # Bowel Movements 0 1 2 Vital Signs: Vital Signs - 24 hr 08/01/16 08/01/16 08/01/16 00:01 07:46 07:53 Temperature 98.7 F 102.7 F H Pulse Rate 101 H 96 H Respiratory 20 20 Rate Blood Pressure 131/73 93/64 L O2 Sat by Pulse 98 95 Oximetry - Physical Exam Abdominal Exam: Soft, Non-Tender, Non-Distended Back: No CVA Tenderness (IMP: FEVER POSS UTI RENAL MASS PLAN/REC: ANTIBIOTIC RX PER ID FURTHER TREATMENT T/F RE RENAL MASS DISCUSSED W PT AND SISTER) - Date & Time of Note Date: 08/01/16 Time: 09:55
[2016-08-02] MEDS: metroNIDAZOLE IV 500 mg/100 ml 500 MG/100 ML BAG IVPB SCH ×4 (00:40→21:48)
[2016-08-02] MEDS: Levothyroxine 25 MCG TAB PO SCH (05:33)
[2016-08-02] MEDS ORDERED: Albuterol-Ipratrop 3 mg / 0.5 (3 ml) UD INH STA (05:44)
[2016-08-02] MEDS ORDERED: Imipenem/Cilastatin 500 MG in Dextrose 5% In Water 100 ML IVPB SCH (06:00)
[2016-08-02] MEDS: Enoxaparin 80 mg Syringe SC SCH ×2 (06:19→19:17)
--- NOTE | 2016-08-02 08:42 | HP ---
70-year old female chief complaint weakness, fatigue, tiredness. Patient came to the hospital, advise d admission. ____ can't out of bed. PHYSICAL EXAMINATION: GENERAL: The patient is awake, alert, oriented. VITAL SIGNS: Temperature 98, Pulse 90. HEENT: Within Normal limits. NECK: Supple. CHEST: Symmetrical. HEART: Regular. ABDOMEN: Soft . EXTREMITIES: No Edema. Patient suffers from UTI, ___, bedrest, supportive care. Juli Acosta MD cc: [id number] TT: 07/31/2016 19:58:00 dn 08/02/2016 07:40:33
--- NOTE | 2016-08-02 09:30 | CP.PCM.PN ---
Subjective - Date & Time of Evaluation Date of Evaluation: 08/02/16 Time of Evaluation: 11:00 - Subjective Subjective: Dr. Montes service: Patient seen in room with sister present. She is complaining of some mild back pain but denies fever, chills, admits to some nausea and vomiting. Objective - Vital Signs/Intake and Output Vital Signs (last 24 hours): Temp Pulse Resp BP Pulse Ox 97.2 F L 104 H 20 176/76 H 94 L 08/02/16 08:10 08/02/16 08:10 08/02/16 08:10 08/02/16 08:10 08/02/16 08:10 Intake and Output: 08/02/16 08/02/16 06:59 18:59 Intake Total 2030 Balance 2030 - Medications Medications: Current Medications Acetaminophen (Tylenol 325mg Tab) 650 mg PO Q4 PRN PRN Reason: Fever >100.4 F Last Admin: 08/01/16 13:34 Dose: 650 mg Enoxaparin Sodium (Lovenox) 70 mg SC Q12H [facility] Last Admin: 08/02/16 06:19 Dose: 70 mg Hydroxyzine HCl (Atarax) 25 mg PO Q6 PRN PRN Reason: Anxiety Sodium Chloride (Sodium Chloride 0.9%) 1,000 mls @ 80 mls/hr IV .[id number] [facility] Last Admin: 08/01/16 21:58 Dose: 80 mls/hr Metronidazole (Flagyl) 500 mg in 100 mls @ 100 mls/hr IVPB Q8 [facility] Last Admin: 08/02/16 06:21 Dose: 100 mls/hr Imipenem/Cilastatin Sodium 500 (mg/ Sodium Chloride) 100 mls @ 100 mls/hr IVPB Q8H [facility] Last Admin: 08/02/16 05:23 Dose: 100 mls/hr Levothyroxine Sodium (Synthroid) 25 mcg PO DAILY@0630 [facility] Last Admin: 08/02/16 05:33 Dose: 25 mcg Pantoprazole Sodium (Protonix Ec Tab) 40 mg PO DAILY [facility] Last Admin: 08/01/16 10:23 Dose: 40 mg Primidone (Mysoline) 250 mg PO Q12 [facility] Last Admin: 08/01/16 21:58 Dose: 250 mg Quetiapine Fumarate (Seroquel) 300 mg PO HS [facility] Last Admin: 08/01/16 21:58 Dose: 300 mg Vancomycin HCl (Vancocin (Oral Or Rectal Use)) 250 mg PO QID [facility] - Constitutional Appears: Non-toxic, No Acute Distress - Head Exam Head Exam: NORMAL INSPECTION - Eye Exam Eye Exam: Normal appearance Pupil Exam: NORMAL ACCOMODATION - Respiratory Exam Respiratory Exam: Clear to Ausculation Bilateral. absent: Rales, Rhonchi, Wheezes - Cardiovascular Exam Cardiovascular Exam: REGULAR RHYTHM, RRR, +S1, +S2. absent: Gallop, Rubs - GI/Abdominal Exam GI & Abdominal Exam: Soft, Normal Bowel Sounds. absent: Tenderness - Extremities Exam Extremities Exam: Normal Inspection - Back Exam Back Exam: NORMAL INSPECTION - Neurological Exam Neurological Exam: Alert - Psychiatric Exam Psychiatric exam: Normal Affect, Normal Mood - Skin Skin Exam: Normal Color Assessment and Plan (1) Bacteremia Assessment & Plan: on IV Primaxin, will repeat blood cultures today. Status: Acute (2) Pulmonary emboli Assessment & Plan: theraputic Lovenox Status: Acute (3) C. difficile colitis Assessment & Plan: oral vanc started yesterday. Status: Acute (4) Anemia, chronic disease Status: Chronic (5) Renal mass Assessment & Plan: Will most likely need a outpatient work up. Dr. Lopez consulted. Status: Acute (6) Prophylactic measure Assessment & Plan: Protonix 40mg theraputic lovenox Status: Acute
[2016-08-02] MEDS: Sodium Chloride 0.9% 1,000 ML IV SCH ×2 (10:30→11:22)
[2016-08-02] MEDS ORDERED: Vancomycin 1 gm/NS 200 ml 1 GM/200 ML BAG IVPB STA (11:13)
--- NOTE | 2016-08-02 11:15 | CP.PCM.PN ---
Subjective - Date & Time of Evaluation Date of Evaluation: 08/02/16 Time of Evaluation: 09:00 - Subjective Subjective: stool + for c diff blood= cocci iv vanco stat dose given consider d/c primaxin Objective - Vital Signs/Intake and Output Vital Signs (last 24 hours): Temp Pulse Resp BP Pulse Ox 97.2 F L 104 H 20 176/76 H 94 L 08/02/16 08:10 08/02/16 08:10 08/02/16 08:10 08/02/16 08:10 08/02/16 08:10 Intake and Output: 08/02/16 08/02/16 06:59 18:59 Intake Total 2030 Balance 2030 - Medications Medications: Current Medications Acetaminophen (Tylenol 325mg Tab) 650 mg PO Q4 PRN PRN Reason: Fever >100.4 F Last Admin: 08/01/16 13:34 Dose: 650 mg Enoxaparin Sodium (Lovenox) 70 mg SC Q12H [facility] Last Admin: 08/02/16 06:19 Dose: 70 mg Hydroxyzine HCl (Atarax) 25 mg PO Q6 PRN PRN Reason: Anxiety Sodium Chloride (Sodium Chloride 0.9%) 1,000 mls @ 80 mls/hr IV .[id number] [facility] Last Admin: 08/01/16 21:58 Dose: 80 mls/hr Metronidazole (Flagyl) 500 mg in 100 mls @ 100 mls/hr IVPB Q8 [facility] Last Admin: 08/02/16 06:21 Dose: 100 mls/hr Imipenem/Cilastatin Sodium 500 (mg/ Sodium Chloride) 100 mls @ 100 mls/hr IVPB Q8H [facility] Last Admin: 08/02/16 05:23 Dose: 100 mls/hr Vancomycin HCl 1 gm/ Sodium (Chloride) 250 mls @ 166.7 mls/hr IVPB STAT STA Stop: 08/02/16 12:42 Levothyroxine Sodium (Synthroid) 25 mcg PO DAILY@0630 [facility] Last Admin: 08/02/16 05:33 Dose: 25 mcg Pantoprazole Sodium (Protonix Ec Tab) 40 mg PO DAILY [facility] Last Admin: 08/01/16 10:23 Dose: 40 mg Primidone (Mysoline) 250 mg PO Q12 [facility] Last Admin: 08/01/16 21:58 Dose: 250 mg Quetiapine Fumarate (Seroquel) 300 mg PO [facility] Last Admin: 08/01/16 21:58 Dose: 300 mg Vancomycin HCl (Vancocin (Oral Or Rectal Use)) 250 mg PO QID [facility] Assessment and Plan (1) Pulmonary emboli Status: Acute (2) Anemia, chronic disease Status: Acute (3) Dehydration Status: Acute (4) Pulmonary emboli Status: Acute (5) Pyelonephritis Status: Acute (6) Renal mass Status: Acute
[2016-08-02] MEDS: Vancomycin 125 MG/5 ML SOLN (ORAL/RECTAL) PO SCH ×4 (11:24→21:48)
[2016-08-02] MEDS: Pantoprazole 40 mg EC Tab PO SCH (11:34)
--- NOTE | 2016-08-02 14:27 | CARD ---
APPROVED REPORT EKG Measurement Heart [id number] <Conclusion> Normal sinus rhythm Normal ECG
--- NOTE | 2016-08-02 15:27 | PCM.URO ---
Urology Progress Note - Objective Lab Results Last 24 Hours: Laboratory Results - last 24 hr 08/01/16 08/01/16 19:41 Unknown Procalcitonin 0.40 C. difficile Ag & Toxin Positive H Intake & Output: Intake & Output 08/01/16 08/02/16 08/02/16 18:59 06:59 18:59 Intake Total 1760 2029 1090 Balance 1760 2029 1090 Intake: Intake, IV Amount 1280 1540 850 Left Antecubital 1280 1540 850 Oral 480 490 240 Other: # Voids Urine, Voided 2 2 3 # Bowel Movements 2 2 Vital Signs: Vital Signs - 24 hr 08/01/16 08/02/16 08/02/16 16:00 00:00 08:10 Temperature 99.5 F 99.8 F H 97.2 F L Pulse Rate 84 100 H 104 H Respiratory 20 20 20 Rate Blood Pressure 144/77 151/84 H 176/76 H O2 Sat by Pulse 94 L 95 94 L Oximetry
--- NOTE | 2016-08-02 19:56 | CON ---
DATE: 08/02/2016 Urology consult for a renal mass. A very pleasant lady, 70 years old, presented to me with a renal mass, but she also has a lot of mult iple medical issues. She has been falling, not been stable on her feet. She has multiple issues karen t are going on. She is a patient of . Then in the hospital, she was seen by Dr. Clay Acosta and she is under Dr. Clay Acosta's service now. She wa s recently in a long-term. I have had a lot of contact with her sister. The issue is she most likely will need a left nephrectomy. I discussed with them that maybe most lik becky this will be done robotically. In the meantime, I do think anybody is going to operate until we stabilize the patient. This was during her last hospital stay, I explained it to the patient and her sister in detail. There are multiple issues and we are working on those issues as well. The patient is now admitted to the hospital mostly because she fell, but she also has an infection, s ee the plan listed below, and urology is consulted. (I also should mention the patient is being seen by cardiology. She has pulmonary emboli noted.) She also has sepsis and she has blood-borne positive cultures. She is being evaluated by Dr. Maciel for this regard. See the plan listed below. From a urology standpoint, in the interim there are no other new changes. REVIEW OF SYSTEMS: Listed above, but it is contributory. She has been not herself and she has been weaker, not been walking and has been falling and this predates my ever seeing the patient. I explai bonifacio this to the patient, see the plan listed below, and her sister in detail. MEDICATIONS: See the chart. ALLERGIES: PHYSICAL EXAMINATION: GENERAL: Well-nourished female. She is currently resting. ABDOMEN: Relatively soft. No real CVA tenderness. LABORATORIES: See chart. Significantly, she has positive cultures. The patient on an ultrasound she basically has a fairly large left renal mass that is about 10 cm in size. We also did a nuclear medicine renal scan. This was done at the end of June during her last admission , just to evaluate function. The left kidney, which is the side with the apparent malignancy, is about 34% function and the right kidney is about 65% function. CT scan is also noted. The question of involvement . The infectious disease consult is noted. The cardiology consult is noted. DIAGNOSES: 1. Urinary tract infection, possible. 2. Blood-borne sepsis with positive cultures. 3. A large renal mass that is almost 10 cm in size. 4. The presence of pulmonary emboli. 5. The concern about the patient's ambulation status. From a urology standpoint is as follows then: The recommendation may be for a nephrectomy, but she needs medical clearance. I have had a chance to speak to Dr. Brenton Moss, survey chief. He is working on just further evaluating her for the p ossibility for insertion of a filter to give her better prognosis rather than blood thinner in terms of surgical intervention. She is getting intermittent heparin. In terms of surgical intervention we need to address this as well. The concern is she will need a nephrectomy, but first we need to have medical clearance that she need s to be medically stable with pulmonary emboli and with the fact that she is falling. There are many , many things going on here. The other is the positive cultures. We need to make sure she is cleare d from an infectious disease standpoint. I had a chance to reach out to Dr. Maciel and he said this is going to also take some time. From a urology standpoint it is as follows: It is a left renal mass suspicious for malignancy. From a urology standpoint it is as follows: A nephrectomy may be appropriate. There are other optio ns that are available. A nephrectomy seems to be the best medical outcome from an oncology standpoint, but we need to evalua te the patient's general status. We will continue to follow along and will see how the patient does clinically and then we will make recommendations depending on her status. We will follow along with infectious disease and with cardiology and see how she is doing and then di scuss further the possibilities. Otf Lopez MD cc: [phone] TT: 08/02/2016 19:55:36 Confirmation # [id number] Dictation # [id number] mn
[2016-08-03] MEDS: metroNIDAZOLE IV 500 mg/100 ml 500 MG/100 ML BAG IVPB SCH ×3 (05:03→21:47)
[2016-08-03] MEDS: Sodium Chloride 0.9% 1,000 ML IV SCH ×3 (05:06→22:58)
[2016-08-03] MEDS: Levothyroxine 25 MCG TAB PO SCH (05:59)
[2016-08-03] MEDS: Enoxaparin 80 mg Syringe SC SCH ×2 (05:59→19:21)
[2016-08-03] MEDS: Vancomycin 125 MG/5 ML SOLN (ORAL/RECTAL) PO SCH ×4 (10:00→21:48)
--- NOTE | 2016-08-03 10:27 | CP.PCM.PN ---
Subjective - Date & Time of Evaluation Date of Evaluation: 08/03/16 Time of Evaluation: 10:00 - Subjective Subjective: events noted will d/c primaxin rx c diff Objective - Vital Signs/Intake and Output Vital Signs (last 24 hours): Temp Pulse Resp BP Pulse Ox 99.5 F 73 20 130/71 94 L 08/03/16 07:20 08/03/16 07:20 08/03/16 07:20 08/03/16 07:20 08/03/16 07:20 Intake and Output: 08/03/16 08/03/16 06:59 18:59 Intake Total 1300 Balance 1300 - Medications Medications: Current Medications Acetaminophen (Tylenol 325mg Tab) 650 mg PO Q4 PRN PRN Reason: Fever >100.4 F Last Admin: 08/03/16 05:13 Dose: 650 mg Enoxaparin Sodium (Lovenox) 70 mg SC Q12H [facility] Last Admin: 08/03/16 05:59 Dose: 70 mg Hydroxyzine HCl (Atarax) 25 mg PO Q6 PRN PRN Reason: Anxiety Sodium Chloride (Sodium Chloride 0.9%) 1,000 mls @ 80 mls/hr IV .[id number] [facility] Last Admin: 08/03/16 05:06 Dose: 80 mls/hr Metronidazole (Flagyl) 500 mg in 100 mls @ 100 mls/hr IVPB Q8 [facility] Last Admin: 08/03/16 05:03 Dose: 100 mls/hr Imipenem/Cilastatin Sodium 500 (mg/ Sodium Chloride) 100 mls @ 100 mls/hr IVPB Q8H [facility] Last Admin: 08/03/16 06:45 Dose: 100 mls/hr Levothyroxine Sodium (Synthroid) 25 mcg PO DAILY@0630 [facility] Last Admin: 08/03/16 05:59 Dose: 25 mcg Ondansetron HCl (Zofran Inj) 4 mg IVP Q6H PRN PRN Reason: Nausea/Vomiting Pantoprazole Sodium (Protonix Ec Tab) 40 mg PO DAILY [facility] Last Admin: 08/02/16 11:34 Dose: 40 mg Primidone (Mysoline) 250 mg PO Q12 [facility] Last Admin: 08/02/16 21:48 Dose: 250 mg Quetiapine Fumarate (Seroquel) 300 mg PO HS [facility] Last Admin: 08/02/16 21:48 Dose: 300 mg Vancomycin HCl (Vancocin (Oral Or Rectal Use)) 250 mg PO QID [facility] Last Admin: 08/02/16 21:48 Dose: 250 mg - Constitutional Appears: Chronically Ill - Head Exam Head Exam: NORMOCEPHALIC - Eye Exam Eye Exam: PERRL. absent: Scleral icterus - ENT Exam ENT Exam: Mucous Membranes Dry - Neck Exam Neck Exam: absent: Lymphadenopathy - Respiratory Exam Respiratory Exam: Decreased Breath Sounds, Rhonchi - Cardiovascular Exam Cardiovascular Exam: REGULAR RHYTHM, +S1, +S2 - GI/Abdominal Exam GI & Abdominal Exam: Distended Assessment and Plan (1) Pulmonary emboli Status: Acute (2) Anemia, chronic disease Status: Chronic (3) Dehydration Status: Acute (4) Pulmonary emboli Status: Acute (5) Pyelonephritis Status: Acute (6) Renal mass Status: Acute
[2016-08-03] MEDS: Pantoprazole 40 mg EC Tab PO SCH (13:40)
--- NOTE | 2016-08-03 15:19 | CP.PCM.PN ---
Subjective - Date & Time of Evaluation Date of Evaluation: 08/03/16 Time of Evaluation: 14:00 - Subjective Subjective: patient has no current chest pain. Objective - Vital Signs/Intake and Output Vital Signs (last 24 hours): Temp Pulse Resp BP Pulse Ox 99.5 F 73 20 130/71 94 L 08/03/16 07:20 08/03/16 07:20 08/03/16 07:20 08/03/16 07:20 08/03/16 07:20 Intake and Output: 08/03/16 08/03/16 06:59 18:59 Intake Total 1300 Balance 1300 - Medications Medications: Current Medications Acetaminophen (Tylenol 325mg Tab) 650 mg PO Q4 PRN PRN Reason: Fever >100.4 F Last Admin: 08/03/16 05:13 Dose: 650 mg Enoxaparin Sodium (Lovenox) 70 mg SC Q12H [facility] Last Admin: 08/03/16 05:59 Dose: 70 mg Hydroxyzine HCl (Atarax) 25 mg PO Q6 PRN PRN Reason: Anxiety Sodium Chloride (Sodium Chloride 0.9%) 1,000 mls @ 80 mls/hr IV .[id number] [facility] Last Admin: 08/03/16 10:00 Dose: 80 mls/hr Metronidazole (Flagyl) 500 mg in 100 mls @ 100 mls/hr IVPB Q8 [facility] Last Admin: 08/03/16 13:40 Dose: 100 mls/hr Levothyroxine Sodium (Synthroid) 25 mcg PO DAILY@0630 [facility] Last Admin: 08/03/16 05:59 Dose: 25 mcg Ondansetron HCl (Zofran Inj) 4 mg IVP Q6H PRN PRN Reason: Nausea/Vomiting Pantoprazole Sodium (Protonix Ec Tab) 40 mg PO DAILY [facility] Last Admin: 08/03/16 13:40 Dose: 40 mg Primidone (Mysoline) 250 mg PO Q12 [facility] Last Admin: 08/03/16 10:00 Dose: Not Given Quetiapine Fumarate (Seroquel) 300 mg PO HS [facility] Last Admin: 08/02/16 21:48 Dose: 300 mg Vancomycin HCl (Vancocin (Oral Or Rectal Use)) 250 mg PO QID [facility] Last Admin: 08/03/16 13:47 Dose: 250 mg - Constitutional Appears: Non-toxic - Head Exam Head Exam: NORMAL INSPECTION - Eye Exam Eye Exam: Normal appearance - ENT Exam ENT Exam: Mucous Membranes Moist - Neck Exam Neck Exam: Full ROM - Respiratory Exam Respiratory Exam: Decreased Breath Sounds - Cardiovascular Exam Cardiovascular Exam: REGULAR RHYTHM - GI/Abdominal Exam GI & Abdominal Exam: Normal Bowel Sounds - Rectal Exam Rectal Exam: Deferred - Extremities Exam Extremities Exam: absent: Pedal Edema - Back Exam Back Exam: NORMAL INSPECTION - Neurological Exam Neurological Exam: Alert - Psychiatric Exam Psychiatric exam: Normal Affect - Skin Skin Exam: Normal Color Assessment and Plan (1) Pulmonary emboli Assessment & Plan: awaiting ID clearance before IVC filter placement. Status: Acute
--- NOTE | 2016-08-03 16:29 | PCM.URO ---
Urology Progress Note - Objective Lab Results Last 24 Hours: Laboratory Results - last 24 hr 08/02/16 Unknown C. difficile Ag & Toxin Negative Intake & Output: Intake & Output 08/02/16 08/03/16 08/03/16 18:59 06:59 18:59 Intake Total 1090 1300 Balance 1090 1300 Intake: Intake, IV Amount 850 800 Left Antecubital 850 800 Oral 240 500 Other: # Voids Urine, Voided 3 1 # Bowel Movements 0 Vital Signs: Vital Signs - 24 hr 08/02/16 08/02/16 08/03/16 19:32 23:20 04:21 Temperature 99.8 F H 99.0 F 99.9 F H Pulse Rate 97 H 95 H 90 Respiratory 20 20 18 Rate Blood Pressure 148/82 139/74 149/80 O2 Sat by Pulse 95 95 93 L Oximetry 08/03/16 07:20 Temperature 99.5 F Pulse Rate 73 Respiratory 20 Rate Blood Pressure 130/71 O2 Sat by Pulse 94 L Oximetry
--- NOTE | 2016-08-03 19:07 | CP.PCM.PN ---
Subjective - Date & Time of Evaluation Date of Evaluation: 08/03/16 Time of Evaluation: 11:00 - Subjective Subjective: Dr. Montes's service: Complaints of nausea and vomiting but no fever, chills, chest pain, shortness of breath or palpitations. Objective - Vital Signs/Intake and Output Vital Signs (last 24 hours): Temp Pulse Resp BP Pulse Ox 97.9 F 80 20 127/74 96 08/03/16 15:00 08/03/16 15:00 08/03/16 15:00 08/03/16 15:00 08/03/16 15:00 - Medications Medications: Current Medications Acetaminophen (Tylenol 325mg Tab) 650 mg PO Q4 PRN PRN Reason: Fever >100.4 F Last Admin: 08/03/16 05:13 Dose: 650 mg Enoxaparin Sodium (Lovenox) 70 mg SC Q12H [facility] Last Admin: 08/03/16 05:59 Dose: 70 mg Hydroxyzine HCl (Atarax) 25 mg PO Q6 PRN PRN Reason: Anxiety Sodium Chloride (Sodium Chloride 0.9%) 1,000 mls @ 80 mls/hr IV .[id number] [facility] Last Admin: 08/03/16 10:00 Dose: 80 mls/hr Metronidazole (Flagyl) 500 mg in 100 mls @ 100 mls/hr IVPB Q8 [facility] Last Admin: 08/03/16 13:40 Dose: 100 mls/hr Levothyroxine Sodium (Synthroid) 25 mcg PO DAILY@0630 [facility] Last Admin: 08/03/16 05:59 Dose: 25 mcg Ondansetron HCl (Zofran Inj) 4 mg IVP Q6H PRN PRN Reason: Nausea/Vomiting Pantoprazole Sodium (Protonix Ec Tab) 40 mg PO DAILY [facility] Last Admin: 08/03/16 13:40 Dose: 40 mg Primidone (Mysoline) 250 mg PO Q12 [facility] Last Admin: 08/03/16 10:00 Dose: Not Given Quetiapine Fumarate (Seroquel) 300 mg PO HS [facility] Last Admin: 08/02/16 21:48 Dose: 300 mg Vancomycin HCl (Vancocin (Oral Or Rectal Use)) 250 mg PO QID [facility] Last Admin: 08/03/16 13:47 Dose: 250 mg - Constitutional Appears: Non-toxic, No Acute Distress - Head Exam Head Exam: NORMAL INSPECTION - Eye Exam Eye Exam: Normal appearance - Respiratory Exam Respiratory Exam: Clear to Ausculation Bilateral. absent: Rhonchi, Wheezes - Cardiovascular Exam Cardiovascular Exam: REGULAR RHYTHM, RRR, +S1, +S2. absent: Gallop, Rubs - GI/Abdominal Exam GI & Abdominal Exam: Soft, Normal Bowel Sounds. absent: Tenderness - Extremities Exam Extremities Exam: Normal Inspection. absent: Pedal Edema - Back Exam Back Exam: NORMAL INSPECTION - Neurological Exam Neurological Exam: Alert - Skin Skin Exam: Normal Color Assessment and Plan (1) Bacteremia Assessment & Plan: Repeat blood cultures are negative have stopped Primaxin per Dr. Maciel ID senior consumer insights consultant. Status: Acute (2) Pulmonary emboli Assessment & Plan: continue theraputic Lovenox Status: Acute (3) C. difficile colitis Assessment & Plan: oral Vancomycin and IV Flagyll, patient still having some diarrhea. Status: Acute (4) Anemia, chronic disease Status: Chronic (5) Renal mass Assessment & Plan: consulted Dr. Saleh. Status: Acute (6) Prophylactic measure Assessment & Plan: protonix 40mg, theraputic lovenox Status: Acute
[2016-08-04] MEDS: metroNIDAZOLE IV 500 mg/100 ml 500 MG/100 ML BAG IVPB SCH ×2 (06:09→22:02)
[2016-08-04] MEDS: Levothyroxine 25 MCG TAB PO SCH (06:10)
[2016-08-04] MEDS: Enoxaparin 80 mg Syringe SC SCH ×2 (06:10→22:01)
[2016-08-04 08:59] LABS: BASO # 0.1 K/uL (0.0-0.2); BASO % 1.1 % (0.0-2.0); EOS # 0.4 K/uL (0.0-0.7); EOS % 5.7 % (0.0-4.0); HEMATOCRIT 24.6 % (34.0-47.0); LYMPH # 1.7 K/uL (1.0-4.3); MEAN CELL VOLUME 75.8 fL (81.0-99.0); MEAN CORPUSCULAR HEMOGLOBIN 24.5 pg (27.0-31.0); MEAN CORPUSCULAR HGB CONC 32.3 g/dL (33.0-37.0); MEAN PLATELET VOLUME 9.3 fL (7.2-11.7); MONO # 0.4 K/uL (0.0-0.8); MONO % 5.7 % (0.0-10.0); RED CELL DISTRIBUTION WIDTH 20.1 % (11.5-14.5); WHITE BLOOD COUNT 7.4 K/uL (4.8-10.8)
[2016-08-04 09:26] LABS: CHLORIDE 107 mmol/L (98-107); SODIUM 136 mmol/L (132-148)
[2016-08-04 09:27] LABS: POTASSIUM 3.5 mmol/L (3.6-5.2)
[2016-08-04 09:28] LABS: AST/SGOT 43 U/L (14-36); BILIRUBIN,TOTAL 0.4 mg/dL (0.2-1.3); CARBON DIOXIDE 21 mmol/L (22-30); GFR AFRICAN-AMERICAN > 60
[2016-08-04 09:29] LABS: ALB/GLOB RATIO 0.8 (1.0-2.1); ALKALINE PHOSPHATASE 293 U/L (38-126); ALT/SGPT 50 U/L (9-52); BLOOD UREA NITROGEN 11 mg/dL (7-17); CALCIUM 8.8 mg/dl (8.6-10.4); GLUCOSE,RANDOM 85 mg/dL (65-105); PHOSPHOROUS 2.8 mg/dL (2.5-4.5); TOTAL PROTEIN 5.8 g/dL (6.3-8.3)
[2016-08-04 09:30] LABS: MAGNESIUM 1.8 mg/dL (1.6-2.3)
[2016-08-04] MEDS: Pantoprazole 40 mg EC Tab PO SCH (09:41)
[2016-08-04] MEDS: Vancomycin 125 MG/5 ML SOLN (ORAL/RECTAL) PO SCH ×4 (09:43→22:00)
--- NOTE | 2016-08-04 11:20 | CP.PCM.PN ---
Subjective - Date & Time of Evaluation Date of Evaluation: 08/04/16 Time of Evaluation: 09:20 - Subjective Subjective: PGY2 Medicine Note - Dr. Montes's service: Patient seen and examined at bedside this AM. Patient reported, " I have the craps." However, when I saw her later with Dr. Montes at 10:30am patient said the diarrhea stopped an hour ago. Patient denies fever, chills, chest pain, SOB , abdominal pain, vomiting. Objective - Vital Signs/Intake and Output Vital Signs (last 24 hours): Temp Pulse Resp BP Pulse Ox 99.5 F 89 18 103/64 97 08/04/16 07:22 08/04/16 07:22 08/04/16 07:22 08/04/16 07:22 08/04/16 07:22 Intake and Output: 08/04/16 08/04/16 06:59 18:59 Intake Total 1660 Balance 1660 - Medications Medications: Current Medications Acetaminophen (Tylenol 325mg Tab) 650 mg PO Q4 PRN PRN Reason: Fever >100.4 F Last Admin: 08/03/16 19:20 Dose: 650 mg Enoxaparin Sodium (Lovenox) 70 mg SC Q12H [facility] Last Admin: 08/04/16 06:10 Dose: 70 mg Hydroxyzine HCl (Atarax) 25 mg PO Q6 PRN PRN Reason: Anxiety Sodium Chloride (Sodium Chloride 0.9%) 1,000 mls @ 80 mls/hr IV .[id number] [facility] Last Admin: 08/03/16 22:58 Dose: 80 mls/hr Metronidazole (Flagyl) 500 mg in 100 mls @ 100 mls/hr IVPB Q8 [facility] Last Admin: 08/04/16 06:09 Dose: 100 mls/hr Levothyroxine Sodium (Synthroid) 25 mcg PO DAILY@0630 [facility] Last Admin: 08/04/16 06:10 Dose: 25 mcg Ondansetron HCl (Zofran Inj) 4 mg IVP Q6H PRN PRN Reason: Nausea/Vomiting Pantoprazole Sodium (Protonix Ec Tab) 40 mg PO DAILY [facility] Last Admin: 08/04/16 09:41 Dose: 40 mg Primidone (Mysoline) 250 mg PO Q12 [facility] Last Admin: 08/04/16 09:41 Dose: 250 mg Quetiapine Fumarate (Seroquel) 300 mg PO HS [facility] Last Admin: 08/03/16 21:48 Dose: 300 mg Vancomycin HCl (Vancocin (Oral Or Rectal Use)) 250 mg PO QID [facility] Last Admin: 08/04/16 09:43 Dose: 250 mg - Labs Labs: 08/04/16 08:42 08/04/16 08:42 - Constitutional Appears: Non-toxic, No Acute Distress - Head Exam Head Exam: NORMAL INSPECTION - Eye Exam Eye Exam: EOMI - ENT Exam ENT Exam: Mucous Membranes Moist - Respiratory Exam Respiratory Exam: Clear to Ausculation Bilateral, NORMAL BREATHING PATTERN - Cardiovascular Exam Cardiovascular Exam: REGULAR RHYTHM, +S1, +S2 - GI/Abdominal Exam GI & Abdominal Exam: Soft, Normal Bowel Sounds. absent: Tenderness - Extremities Exam Extremities Exam: absent: Pedal Edema - Neurological Exam Neurological Exam: Alert, Awake, Oriented x3 - Psychiatric Exam Psychiatric exam: Normal Affect, Normal Mood - Skin Skin Exam: Normal Color, Warm Assessment and Plan - Assessment and Plan (Free Text) Assessment: Assessment and Plan (1) Bacteremia Assessment & Plan: Repeat blood cultures are negative x 24 hours have stopped Primaxin per Dr. Maciel ID contaminated land consultant. Status: Acute (2) Pulmonary emboli Assessment & Plan: continue theraputic Lovenox Dr. Moss plans to place IVC filter once patient is stable Status: Acute (3) C. difficile colitis Assessment & Plan: oral Vancomycin and IV Flagyll, patient still having some diarrhea. Status: Acute (4) Anemia, chronic disease Status: Chronic F/U stool occult blood Monitor (5) Renal mass Assessment & Plan: consulted Dr. Lopez - f/u recs Status: Acute (6) Prophylactic measure Assessment & Plan: protonix 40mg, theraputic lovenox Status: Acute
--- NOTE | 2016-08-04 18:22 | CP.PCM.PN ---
Subjective - Date & Time of Evaluation Date of Evaluation: 08/04/16 Time of Evaluation: 09:00 - Subjective Subjective: events noted ideally diarrhea needs to be controlled before OR/IVC filter Objective - Vital Signs/Intake and Output Vital Signs (last 24 hours): Temp Pulse Resp BP Pulse Ox 98.6 F 87 12 107/67 96 08/04/16 16:38 08/04/16 16:38 08/04/16 16:38 08/04/16 16:38 08/04/16 16:38 Intake and Output: 08/04/16 08/04/16 06:59 18:59 Intake Total 1660 Balance 1660 - Medications Medications: Current Medications Acetaminophen (Tylenol 325mg Tab) 650 mg PO Q4 PRN PRN Reason: Fever >100.4 F Last Admin: 08/03/16 19:20 Dose: 650 mg Enoxaparin Sodium (Lovenox) 70 mg SC Q12H [facility] Last Admin: 08/04/16 06:10 Dose: 70 mg Hydroxyzine HCl (Atarax) 25 mg PO Q6 PRN PRN Reason: Anxiety Sodium Chloride (Sodium Chloride 0.9%) 1,000 mls @ 80 mls/hr IV .[id number] [facility] Last Admin: 08/03/16 22:58 Dose: 80 mls/hr Metronidazole (Flagyl) 500 mg in 100 mls @ 100 mls/hr IVPB Q8 [facility] Last Admin: 08/04/16 06:09 Dose: 100 mls/hr Levothyroxine Sodium (Synthroid) 25 mcg PO DAILY@0630 [facility] Last Admin: 08/04/16 06:10 Dose: 25 mcg Ondansetron HCl (Zofran Inj) 4 mg IVP Q6H PRN PRN Reason: Nausea/Vomiting Pantoprazole Sodium (Protonix Ec Tab) 40 mg PO DAILY [facility] Last Admin: 08/04/16 09:41 Dose: 40 mg Primidone (Mysoline) 250 mg PO Q12 [facility] Last Admin: 08/04/16 09:41 Dose: 250 mg Quetiapine Fumarate (Seroquel) 300 mg PO HS [facility] Last Admin: 08/03/16 21:48 Dose: 300 mg Vancomycin HCl (Vancocin (Oral Or Rectal Use)) 250 mg PO QID [facility] Last Admin: 08/04/16 17:48 Dose: 250 mg - Labs Labs: 06/14/17 08:42 08/04/16 08:42 Assessment and Plan (1) Pulmonary emboli Status: Acute (2) Anemia, chronic disease Status: Chronic (3) Dehydration Status: Acute (4) Pulmonary emboli Status: Acute (5) Pyelonephritis Status: Acute (6) Renal mass Status: Acute
--- NOTE | 2016-08-04 19:27 | CP.PCM.PN ---
Subjective - Date & Time of Evaluation Date of Evaluation: 08/04/16 Time of Evaluation: 19:40 - Subjective Subjective: patient has no further diarrhea Objective - Vital Signs/Intake and Output Vital Signs (last 24 hours): Temp Pulse Resp BP Pulse Ox 98.6 F 87 12 107/67 96 08/04/16 16:38 08/04/16 16:38 08/04/16 16:38 08/04/16 16:38 08/04/16 16:38 - Medications Medications: Current Medications Acetaminophen (Tylenol 325mg Tab) 650 mg PO Q4 PRN PRN Reason: Fever >100.4 F Last Admin: 08/03/16 19:20 Dose: 650 mg Enoxaparin Sodium (Lovenox) 70 mg SC Q12H [facility] Last Admin: 08/04/16 06:10 Dose: 70 mg Hydroxyzine HCl (Atarax) 25 mg PO Q6 PRN PRN Reason: Anxiety Sodium Chloride (Sodium Chloride 0.9%) 1,000 mls @ 80 mls/hr IV .[id number] [facility] Last Admin: 08/03/16 22:58 Dose: 80 mls/hr Metronidazole (Flagyl) 500 mg in 100 mls @ 100 mls/hr IVPB Q8 [facility] Last Admin: 08/04/16 06:09 Dose: 100 mls/hr Levothyroxine Sodium (Synthroid) 25 mcg PO DAILY@0630 [facility] Last Admin: 08/04/16 06:10 Dose: 25 mcg Ondansetron HCl (Zofran Inj) 4 mg IVP Q6H PRN PRN Reason: Nausea/Vomiting Pantoprazole Sodium (Protonix Ec Tab) 40 mg PO DAILY [facility] Last Admin: 08/04/16 09:41 Dose: 40 mg Primidone (Mysoline) 250 mg PO Q12 [facility] Last Admin: 08/04/16 09:41 Dose: 250 mg Quetiapine Fumarate (Seroquel) 300 mg PO HS [facility] Last Admin: 08/03/16 21:48 Dose: 300 mg Vancomycin HCl (Vancocin (Oral Or Rectal Use)) 250 mg PO QID [facility] Last Admin: 08/04/16 17:48 Dose: 250 mg - Labs Labs: 08/04/16 08:42 08/04/16 08:42 - Constitutional Appears: Non-toxic - Head Exam Head Exam: NORMAL INSPECTION - Eye Exam Eye Exam: Normal appearance - ENT Exam ENT Exam: Mucous Membranes Moist - Neck Exam Neck Exam: Normal Inspection - Respiratory Exam Respiratory Exam: NORMAL BREATHING PATTERN - Cardiovascular Exam Cardiovascular Exam: REGULAR RHYTHM - GI/Abdominal Exam GI & Abdominal Exam: Normal Bowel Sounds - Rectal Exam Rectal Exam: Deferred - Extremities Exam Extremities Exam: absent: Pedal Edema - Back Exam Back Exam: NORMAL INSPECTION - Neurological Exam Neurological Exam: Alert - Psychiatric Exam Psychiatric exam: Normal Affect - Skin Skin Exam: Normal Color Assessment and Plan (1) Pulmonary emboli Assessment & Plan: There is no current diarrhea. will schedule IVC filter. Status: Acute
[2016-08-05] MEDS: metroNIDAZOLE IV 500 mg/100 ml 500 MG/100 ML BAG IVPB SCH (05:50)
[2016-08-05] MEDS: Levothyroxine 25 MCG TAB PO SCH (05:50)
[2016-08-05] MEDS: Enoxaparin 80 mg Syringe SC SCH ×2 (06:47→18:59)
[2016-08-05 06:59] LABS: CHLORIDE 106 mmol/L (98-107); POTASSIUM 3.7 mmol/L (3.6-5.2); SODIUM 134 mmol/L (132-148)
[2016-08-05 07:01] LABS: AST/SGOT 42 U/L (14-36); BILIRUBIN,TOTAL 0.5 mg/dL (0.2-1.3); CARBON DIOXIDE 19 mmol/L (22-30); GFR AFRICAN-AMERICAN > 60
[2016-08-05 07:02] LABS: ALB/GLOB RATIO 0.9 (1.0-2.1); ALKALINE PHOSPHATASE 264 U/L (38-126); ALT/SGPT 40 U/L (9-52); BLOOD UREA NITROGEN 11 mg/dL (7-17); CALCIUM 8.4 mg/dl (8.6-10.4); GLUCOSE,RANDOM 92 mg/dL (65-105); TOTAL PROTEIN 5.6 g/dL (6.3-8.3)
[2016-08-05 07:37] LABS: BASO # 0.1 K/uL (0.0-0.2); BASO % 0.8 % (0.0-2.0); EOS # 0.4 K/uL (0.0-0.7); EOS % 4.7 % (0.0-4.0); LYMPH # 1.9 K/uL (1.0-4.3); LYMPH % 23.3 % (20.0-40.0); MEAN CELL VOLUME 76.1 fL (81.0-99.0); MEAN CORPUSCULAR HEMOGLOBIN 24.7 pg (27.0-31.0); MEAN CORPUSCULAR HGB CONC 32.5 g/dL (33.0-37.0); MEAN PLATELET VOLUME 9.2 fL (7.2-11.7); MONO # 0.7 K/uL (0.0-0.8); NRBC % 0.2 % (0.0-2.0); RED CELL DISTRIBUTION WIDTH 20.3 % (11.5-14.5); WHITE BLOOD COUNT 8.2 K/uL (4.8-10.8)
[2016-08-05] MEDS: Sodium Chloride 0.9% 1,000 ML IV SCH (08:00)
[2016-08-05] MEDS: Pantoprazole 40 mg EC Tab PO SCH ×2 (09:11→14:11)
[2016-08-05] MEDS: Vancomycin 125 MG/5 ML SOLN (ORAL/RECTAL) PO SCH ×4 (09:13→21:44)
--- NOTE | 2016-08-05 11:24 | CP.PCM.PN ---
Subjective - Date & Time of Evaluation Date of Evaluation: 08/05/16 Time of Evaluation: 09:35 - Subjective Subjective: PGY2 Medicine Note - Dr. Montes's service: Patient seen and examined at bedside this AM. Patient reports diarrhea has stopped. She had one BM this AM but she does not know if it was loose or not. Patient is getting IVC filter today. Objective - Vital Signs/Intake and Output Vital Signs (last 24 hours): Temp Pulse Resp BP Pulse Ox 100.5 F H 93 H 18 156/81 H 96 08/05/16 07:22 08/05/16 07:22 08/05/16 07:22 08/05/16 07:22 08/05/16 07:22 Intake and Output: 08/05/16 08/05/16 06:59 18:59 Intake Total 1540 Balance 1540 - Medications Medications: Current Medications Acetaminophen (Tylenol 325mg Tab) 650 mg PO Q4 PRN PRN Reason: Fever >100.4 F Last Admin: 08/05/16 00:18 Dose: 650 mg Enoxaparin Sodium (Lovenox) 70 mg SC Q12H [facility] Last Admin: 08/05/16 06:47 Dose: Not Given Hydroxyzine HCl (Atarax) 25 mg PO Q6 PRN PRN Reason: Anxiety Sodium Chloride (Sodium Chloride 0.9%) 1,000 mls @ 80 mls/hr IV .[id number] [facility] Last Admin: 08/03/16 22:58 Dose: 80 mls/hr Metronidazole (Flagyl) 500 mg in 100 mls @ 100 mls/hr IVPB Q8 [facility] Last Admin: 08/05/16 05:50 Dose: 100 mls/hr Levothyroxine Sodium (Synthroid) 25 mcg PO DAILY@0630 [facility] Last Admin: 08/05/16 05:50 Dose: 25 mcg Ondansetron HCl (Zofran Inj) 4 mg IVP Q6H PRN PRN Reason: Nausea/Vomiting Pantoprazole Sodium (Protonix Ec Tab) 40 mg PO DAILY [facility] Last Admin: 08/04/16 09:41 Dose: 40 mg Primidone (Mysoline) 250 mg PO Q12 [facility] Last Admin: 08/04/16 22:02 Dose: 250 mg Quetiapine Fumarate (Seroquel) 300 mg PO HS [facility] Last Admin: 08/04/16 22:01 Dose: 300 mg Vancomycin HCl (Vancocin (Oral Or Rectal Use)) 250 mg PO QID [facility] Last Admin: 08/05/16 09:13 Dose: 250 mg - Labs Labs: 08/05/16 06:29 08/05/16 06:29 - Constitutional Appears: Non-toxic, No Acute Distress - Head Exam Head Exam: NORMAL INSPECTION - Eye Exam Eye Exam: EOMI - ENT Exam ENT Exam: Mucous Membranes Moist - Respiratory Exam Respiratory Exam: Clear to Ausculation Bilateral, NORMAL BREATHING PATTERN. absent: Rales, Rhonchi, Wheezes - Cardiovascular Exam Cardiovascular Exam: REGULAR RHYTHM, +S1, +S2. absent: Gallop, Rubs, Murmur - GI/Abdominal Exam GI & Abdominal Exam: Soft, Hyperactive Bowel Sounds. absent: Tenderness - Extremities Exam Extremities Exam: absent: Pedal Edema - Neurological Exam Neurological Exam: Alert, Awake, Oriented x3 - Psychiatric Exam Psychiatric exam: Normal Affect, Normal Mood - Skin Skin Exam: Normal Color, Warm Assessment and Plan - Assessment and Plan (Free Text) Assessment: (1) Bacteremia Assessment & Plan: Repeat blood cultures are negative x 24 hours have stopped Primaxin per Dr. Maciel ID delivery consultant. Patient still having fevers at night. 100.9 last night. Status: Acute (2) Pulmonary emboli Assessment & Plan: continue theraputic Lovenox Dr. Moss plans to place IVC filter today Status: Acute (3) C. difficile colitis Assessment & Plan: oral Vancomycin and oral Flagyl Status: Acute (4) Anemia, chronic disease Status: Chronic F/U stool occult blood Monitor (5) Renal mass Assessment & Plan: consulted Dr. Lopez - f/u recs Status: Acute (6) Prophylactic measure Assessment & Plan: protonix 40mg, theraputic lovenox Status: Acute Management per Dr. Montes
[2016-08-05 11:46] LABS: INR 1.1
[2016-08-05 15:20] VITALS: RESP 20
--- NOTE | 2016-08-05 16:18 | PCM.URO ---
Urology Progress Note - Objective Lab Results Last 24 Hours: Laboratory Results - last 24 hr 08/04/16 08/05/16 08/05/16 18:40 06:29 06:29 WBC 8.2 RBC 3.16 L Hgb 7.8 L Hct 24.0 L MCV 76.1 L MCH 24.7 L MCHC 32.5 L RDW 20.3 H Plt Count 392 MPV 9.2 Neut % (Auto) 63.2 Lymph % (Auto) 23.3 [place] % (Auto) 8.0 Eos % (Auto) 4.7 H Baso % (Auto) 0.8 Neut # 5.2 Lymph # 1.9 [place] # 0.7 Eos # 0.4 Baso # 0.1 PT INR APTT Sodium 134 Potassium 3.7 Chloride 106 Carbon Dioxide 19 L Anion Gap 13 BUN 11 Creatinine 0.8 Est GFR ( Amer) > 60 Est GFR (Non-Af Amer) > 60 Random Glucose 92 Calcium 8.4 L Total Bilirubin 0.5 AST 42 H ALT 40 Alkaline Phosphatase 264 H Total Protein 5.6 L Albumin 2.6 L Globulin 3.0 Albumin/Globulin Ratio 0.9 L Stool Occult Blood Negative 08/05/16 11:33 WBC RBC Hgb Hct MCV MCH MCHC RDW Plt Count MPV Neut % (Auto) Lymph % (Auto) [place] % (Auto) Eos % (Auto) Baso % (Auto) Neut # Lymph # [place] # Eos # Baso # PT 12.9 H INR 1.1 APTT 24 Sodium Potassium Chloride Carbon Dioxide Anion Gap BUN Creatinine Est GFR ( Amer) Est GFR (Non-Af Amer) Random Glucose Calcium Total Bilirubin AST ALT Alkaline Phosphatase Total Protein Albumin Globulin Albumin/Globulin Ratio Stool Occult Blood Intake & Output: Intake & Output 08/04/16 08/05/16 08/05/16 18:59 06:59 18:59 Intake Total 1540 Balance 1540 Intake: Intake, IV Amount 1220 Left Antecubital 1220 Oral 320 Other: # Voids Urine, Voided 2 # Bowel Movements 1 Vital Signs: Vital Signs - 24 hr 08/04/16 08/04/16 08/05/16 16:38 23:20 00:18 Temperature 98.6 F 100.9 F H 100.9 F H Pulse Rate 87 100 H Respiratory 12 20 Rate Blood Pressure 107/67 114/73 O2 Sat by Pulse 96 96 Oximetry 08/05/16 08/05/16 08/05/16 05:00 07:22 13:00 Temperature 98.9 F 100.5 F H 98.7 F Pulse Rate 93 H 90 Respiratory 18 20 Rate Blood Pressure 156/81 H 130/79 O2 Sat by Pulse 96 99 Oximetry 08/05/16 15:00 Temperature 99.2 F Pulse Rate 87 Respiratory 20 Rate Blood Pressure 153/76 H O2 Sat by Pulse 97 Oximetry
--- NOTE | 2016-08-05 16:40 | RAD ---
Chest x-ray single frontal view History: Infection. Comparison: 07/30/2016 Findings: Prominent left basilar airspace opacity with moderate left pleural effusion. Moderate to severe venous congestion. Cardiomegaly. Degenerative changes in the spine and shoulders. Biapical pleural thickening with upper lobe granulomatous changes. Impression: Prominent left basilar airspace opacity with moderate left pleural effusion. Moderate to severe venous congestion. Cardiomegaly.
--- NOTE | 2016-08-05 18:59 | CP.PCM.PN ---
Subjective - Date & Time of Evaluation Date of Evaluation: 08/05/16 Time of Evaluation: 08:00 - Subjective Subjective: no diarrhea still with fever alert and responsive for possible IVC filter Objective - Vital Signs/Intake and Output Vital Signs (last 24 hours): Temp Pulse Resp BP Pulse Ox 99.2 F 87 20 153/76 H 97 08/05/16 15:00 08/05/16 15:00 08/05/16 15:00 08/05/16 15:00 08/05/16 15:00 Intake and Output: 08/05/16 08/05/16 06:59 18:59 Intake Total 1540 Balance 1540 - Medications Medications: Current Medications Acetaminophen (Tylenol 325mg Tab) 650 mg PO Q4 PRN PRN Reason: Fever >100.4 F Last Admin: 08/05/16 00:18 Dose: 650 mg Enoxaparin Sodium (Lovenox) 70 mg SC Q12H [facility] Last Admin: 08/05/16 06:47 Dose: Not Given Hydroxyzine HCl (Atarax) 25 mg PO Q6 PRN PRN Reason: Anxiety Sodium Chloride (Sodium Chloride 0.9%) 1,000 mls @ 80 mls/hr IV .[id number] [facility] Last Admin: 08/05/16 08:00 Dose: 80 mls/hr Levothyroxine Sodium (Synthroid) 25 mcg PO DAILY@0630 [facility] Last Admin: 08/05/16 05:50 Dose: 25 mcg Metronidazole (Flagyl) 500 mg PO Q8 [facility] Last Admin: 08/05/16 14:11 Dose: 500 mg Ondansetron HCl (Zofran Inj) 4 mg IVP Q6H PRN PRN Reason: Nausea/Vomiting Pantoprazole Sodium (Protonix Ec Tab) 40 mg PO DAILY [facility] Last Admin: 08/05/16 14:11 Dose: 40 mg Primidone (Mysoline) 250 mg PO Q12 [facility] Last Admin: 08/05/16 10:00 Dose: Not Given Quetiapine Fumarate (Seroquel) 300 mg PO HS [facility] Last Admin: 08/04/16 22:01 Dose: 300 mg Vancomycin HCl (Vancocin (Oral Or Rectal Use)) 250 mg PO QID [facility] Last Admin: 08/05/16 17:42 Dose: 250 mg - Labs Labs: 08/05/16 06:29 08/05/16 06:29 PT 12.9 SECONDS (9.7-12.2) H 08/05/16 11:33 INR 1.1 08/05/16 11:33 APTT 24 SECONDS (21-34) 08/05/16 11:33 - Constitutional Appears: Non-toxic, Chronically Ill - Head Exam Head Exam: NORMOCEPHALIC - Eye Exam Eye Exam: PERRL. absent: Scleral icterus - ENT Exam ENT Exam: Mucous Membranes Dry - Neck Exam Neck Exam: absent: Lymphadenopathy - Respiratory Exam Respiratory Exam: Decreased Breath Sounds, Clear to Ausculation Bilateral - Cardiovascular Exam Cardiovascular Exam: REGULAR RHYTHM, +S1, +S2 - GI/Abdominal Exam GI & Abdominal Exam: Distended, Soft. absent: Tenderness - Rectal Exam Rectal Exam: Deferred Assessment and Plan (1) Pulmonary emboli Status: Acute (2) Anemia, chronic disease Status: Chronic (3) Dehydration Status: Acute (4) Pulmonary emboli Status: Acute (5) Pyelonephritis Status: Acute (6) Renal mass Status: Acute
--- NOTE | 2016-08-05 22:10 | CARD ---
APPROVED REPORT EXAM: Two-dimensional and M-mode echocardiogram with Doppler and color Doppler. Other Information Quality : GoodRhythm : INDICATION Dyspnea RISK FACTORS Hypertension M-Mode DIMENSIONS Left Atrium (MM)4.25 (2.5-4.0cm)IVSd1.20 (0.7-1.1cm) Aortic Root3.26 (2.2-3.7cm)LVDd7.13 (4.0-5.6cm) Aortic Cusp Exc.1.61 (1.5-2.0cm)PWd1.40 (0.7-1.1cm) FS (%) 24 %LVDs5.44 (2.0-3.8cm) LVEF (%)50 (>50%) Aortic Valve AoV Peak Cnjigkcz906.2cm/Agata Peak GR.12mmHg Mitral Valve MV E Lddfhinb09.5cm/sMV A Unvubouh375.3cm/sE/A ratio0.8 TDI E/Lateral E'0.0E/Medial E'0.0 Tricuspid Valve TR Peak Hqlzncct611jq/sTR Peak Gr.[id number] LEFT VENTRICLE The left ventricle is normal size. There is mild concentric left ventricular hypertrophy. Left ventricle systolic function is normal. The Ejection Fraction is 50-55%. There is normal LV segmental wall motion. Tissue Doppler imaging reveals abnormal left ventricular diastolic dysfunction. RIGHT VENTRICLE The right ventricle is normal size. There is normal right ventricular wall thickness. The right ventricular systolic function is normal. ATRIA The left atrium is mildly dilated. The right atrium size is normal. The interatrial septum is intact with no evidence for an atrial septal defect. AORTIC VALVE The aortic valve is normal in structure. No aortic regurgitation is present. There is no aortic valvular stenosis. MITRAL VALVE The mitral valve is normal in structure. There is no evidence of mitral valve prolapse. There is no mitral valve stenosis. There is no mitral valve regurgitation noted. TRICUSPID VALVE The tricuspid valve is normal in structure. There is mild tricuspid regurgitation. Right ventricular systolic pressure is estimated at 30-40 mmHg. There is mild pulmonary hypertension. PULMONIC VALVE The pulmonic valve is not well visualized. There is no pulmonic valvular regurgitation. GREAT VESSELS The aortic root is normal in size. PERICARDIAL EFFUSION There is no significant pericardial effusion. <Conclusion> Left ventricle systolic function is normal. The Ejection Fraction is 50-55%. Hypertensive heart disease. Diastolic dysfunction. No aortic regurgitation is present. There is no mitral valve regurgitation noted. There is mild tricuspid regurgitation. There is mild pulmonary hypertension. There is no pulmonic valvular regurgitation.
[2016-08-06] MEDS: Sodium Chloride 0.9% 1,000 ML IV SCH (01:30)
[2016-08-06] MEDS: Levothyroxine 25 MCG TAB PO SCH (05:56)
[2016-08-06] MEDS: Enoxaparin 80 mg Syringe SC SCH (06:01)
--- NOTE | 2016-08-06 06:45 | CP.PCM.PN ---
Subjective - Date & Time of Evaluation Date of Evaluation: 08/05/16 Time of Evaluation: 17:00 - Subjective Subjective: IVC filter cancelled by infection control. will await ID clearance. Objective - Vital Signs/Intake and Output Vital Signs (last 24 hours): Temp Pulse Resp BP Pulse Ox 99.8 F H 86 20 136/81 95 08/05/16 23:10 08/05/16 23:10 08/05/16 23:10 08/05/16 23:10 08/05/16 23:10 Intake and Output: 08/05/16 08/06/16 18:59 06:59 Intake Total 640 Balance 640 - Medications Medications: Current Medications Acetaminophen (Tylenol 325mg Tab) 650 mg PO Q4 PRN PRN Reason: Fever >100.4 F Last Admin: 08/05/16 00:18 Dose: 650 mg Enoxaparin Sodium (Lovenox) 70 mg SC Q12H [facility] Last Admin: 08/06/16 06:01 Dose: 70 mg Hydroxyzine HCl (Atarax) 25 mg PO Q6 PRN PRN Reason: Anxiety Sodium Chloride (Sodium Chloride 0.9%) 1,000 mls @ 80 mls/hr IV .[id number] [facility] Last Admin: 08/06/16 01:30 Dose: Not Given Levothyroxine Sodium (Synthroid) 25 mcg PO DAILY@0630 [facility] Last Admin: 08/06/16 05:56 Dose: 25 mcg Metronidazole (Flagyl) 500 mg PO Q8 [facility] Last Admin: 08/06/16 05:56 Dose: 500 mg Ondansetron HCl (Zofran Inj) 4 mg IVP Q6H PRN PRN Reason: Nausea/Vomiting Pantoprazole Sodium (Protonix Ec Tab) 40 mg PO DAILY [facility] Last Admin: 08/05/16 14:11 Dose: 40 mg Primidone (Mysoline) 250 mg PO Q12 [facility] Last Admin: 08/05/16 21:44 Dose: 250 mg Quetiapine Fumarate (Seroquel) 300 mg PO HS [facility] Last Admin: 08/05/16 21:44 Dose: 300 mg Vancomycin HCl (Vancocin (Oral Or Rectal Use)) 250 mg PO QID [facility] Last Admin: 08/05/16 21:44 Dose: 250 mg - Labs Labs: 08/05/16 06:29 08/05/16 06:29 PT 12.9 SECONDS (9.7-12.2) H 08/05/16 11:33 INR 1.1 08/05/16 11:33 APTT 24 SECONDS (21-34) 08/05/16 11:33 Assessment and Plan (1) Pulmonary emboli Status: Acute
--- NOTE | 2016-08-06 07:16 | PCM.URO ---
Urology Progress Note - General General: No Complaints, Tolerating Diet - Subjective Abdominal Pain: No Nausea: No Vomiting: No Voiding Well: Yes Hematuria: No [place]: No Chest Pain: No Fever & Chills: No - Objective Lab Results Last 24 Hours: Laboratory Results - last 24 hr 08/05/16 08/05/16 06:29 11:33 WBC 8.2 RBC 3.16 L Hgb 7.8 L Hct 24.0 L MCV 76.1 L MCH 24.7 L MCHC 32.5 L RDW 20.3 H Plt Count 392 MPV 9.2 Neut % (Auto) 63.2 Lymph % (Auto) 23.3 [place] % (Auto) 8.0 Eos % (Auto) 4.7 H Baso % (Auto) 0.8 Neut # 5.2 Lymph # 1.9 [place] # 0.7 Eos # 0.4 Baso # 0.1 PT 12.9 H INR 1.1 APTT 24 Intake & Output: Intake & Output 08/05/16 08/06/16 08/06/16 18:59 06:59 18:59 Intake Total 640 Balance 640 Intake: Intake, IV Amount 640 Left Antecubital 640 Vital Signs: Vital Signs - 24 hr 08/05/16 08/05/16 08/05/16 07:22 13:00 15:00 Temperature 100.5 F H 98.7 F 99.2 F Pulse Rate 93 H 90 87 Respiratory 18 20 20 Rate Blood Pressure 156/81 H 130/79 153/76 H O2 Sat by Pulse 96 99 97 Oximetry 08/05/16 23:10 Temperature 99.8 F H Pulse Rate 86 Respiratory 20 Rate Blood Pressure 136/81 O2 Sat by Pulse 95 Oximetry - Physical Exam Abdominal Exam: Soft, Non-Tender, Non-Distended Bowel Sounds: Normal Urine Color: Clear, Yellow - Plan Additional Information: IMP: RENAL TUMOR. IMPROVED RE INFECTIONPT WILL NEED TREATMENT FOR RENAL TUMOR; SURGERY T/F - Date & Time of Note Date: 08/06/16 Time: 07:16
[2016-08-06 07:28] LABS: BASO # 0.1 K/uL (0.0-0.2); BASO % 0.9 % (0.0-2.0); EOS # 0.3 K/uL (0.0-0.7); EOS % 4.5 % (0.0-4.0); LYMPH # 1.7 K/uL (1.0-4.3); LYMPH % 22.7 % (20.0-40.0); MEAN CELL VOLUME 76.6 fL (81.0-99.0); MEAN CORPUSCULAR HEMOGLOBIN 24.8 pg (27.0-31.0); MEAN CORPUSCULAR HGB CONC 32.3 g/dL (33.0-37.0); MEAN PLATELET VOLUME 8.9 fL (7.2-11.7); MONO # 0.6 K/uL (0.0-0.8); MONO % 7.6 % (0.0-10.0); RED CELL DISTRIBUTION WIDTH 20.4 % (11.5-14.5); WHITE BLOOD COUNT 7.7 K/uL (4.8-10.8)
[2016-08-06 07:58] LABS: CHLORIDE 109 mmol/L (98-107); POTASSIUM 3.8 mmol/L (3.6-5.2); SODIUM 137 mmol/L (132-148)
[2016-08-06 08:00] LABS: BILIRUBIN,TOTAL 0.4 mg/dL (0.2-1.3); GFR AFRICAN-AMERICAN > 60
[2016-08-06 08:01] LABS: ALB/GLOB RATIO 0.8 (1.0-2.1); ALKALINE PHOSPHATASE 231 U/L (38-126); ALT/SGPT 41 U/L (9-52); AST/SGOT 39 U/L (14-36); BLOOD UREA NITROGEN 9 mg/dL (7-17); CARBON DIOXIDE 21 mmol/L (22-30); GLUCOSE,RANDOM 88 mg/dL (65-105); TOTAL PROTEIN 5.8 g/dL (6.3-8.3)
[2016-08-06 08:02] LABS: CALCIUM 8.7 mg/dl (8.6-10.4)
--- NOTE | 2016-08-06 09:23 | CP.PCM.PN ---
Subjective - Date & Time of Evaluation Date of Evaluation: 08/06/16 Time of Evaluation: 07:20 - Subjective Subjective: PGY2 Medicine Note - Dr. Montes's service: Patient seen and examined at bedside this AM. Patient reports diarrhea has stopped. She says she feels very tired. Objective - Vital Signs/Intake and Output Vital Signs (last 24 hours): Temp Pulse Resp BP Pulse Ox 99.8 F H 86 20 136/81 95 08/05/16 23:10 08/05/16 23:10 08/05/16 23:10 08/05/16 23:10 08/05/16 23:10 Intake and Output: 08/06/16 08/06/16 06:59 18:59 Intake Total 640 Balance 640 - Medications Medications: Current Medications Acetaminophen (Tylenol 325mg Tab) 650 mg PO Q4 PRN PRN Reason: Fever >100.4 F Last Admin: 08/05/16 00:18 Dose: 650 mg Enoxaparin Sodium (Lovenox) 70 mg SC Q12H [facility] Last Admin: 08/06/16 06:01 Dose: 70 mg Hydroxyzine HCl (Atarax) 25 mg PO Q6 PRN PRN Reason: Anxiety Sodium Chloride (Sodium Chloride 0.9%) 1,000 mls @ 80 mls/hr IV .[id number] [facility] Last Admin: 08/06/16 01:30 Dose: Not Given Levothyroxine Sodium (Synthroid) 25 mcg PO DAILY@0630 [facility] Last Admin: 08/06/16 05:56 Dose: 25 mcg Metronidazole (Flagyl) 500 mg PO Q8 [facility] Last Admin: 08/06/16 05:56 Dose: 500 mg Ondansetron HCl (Zofran Inj) 4 mg IVP Q6H PRN PRN Reason: Nausea/Vomiting Pantoprazole Sodium (Protonix Ec Tab) 40 mg PO DAILY [facility] Last Admin: 08/05/16 14:11 Dose: 40 mg Primidone (Mysoline) 250 mg PO Q12 [facility] Last Admin: 08/05/16 21:44 Dose: 250 mg Quetiapine Fumarate (Seroquel) 300 mg PO HS [facility] Last Admin: 08/05/16 21:44 Dose: 300 mg Vancomycin HCl (Vancocin (Oral Or Rectal Use)) 250 mg PO QID [facility] Last Admin: 08/05/16 21:44 Dose: 250 mg - Labs Labs: 08/06/16 07:09 08/06/16 07:09 PT 12.9 SECONDS (9.7-12.2) H 08/05/16 11:33 INR 1.1 08/05/16 11:33 APTT 24 SECONDS (21-34) 08/05/16 11:33 - Constitutional Appears: Non-toxic, No Acute Distress - Head Exam Head Exam: NORMAL INSPECTION - Eye Exam Eye Exam: EOMI - ENT Exam ENT Exam: Mucous Membranes Moist - Respiratory Exam Respiratory Exam: Clear to Ausculation Bilateral, NORMAL BREATHING PATTERN. absent: Rales, Rhonchi, Wheezes - Cardiovascular Exam Cardiovascular Exam: REGULAR RHYTHM, +S1, +S2. absent: Gallop, Rubs - GI/Abdominal Exam GI & Abdominal Exam: Soft, Normal Bowel Sounds. absent: Tenderness - Extremities Exam Extremities Exam: absent: Pedal Edema - Neurological Exam Neurological Exam: Alert, Awake, Oriented x3 - Psychiatric Exam Psychiatric exam: Normal Affect, Normal Mood - Skin Skin Exam: Normal Color, Warm Assessment and Plan - Assessment and Plan (Free Text) Assessment: (1) Bacteremia Assessment & Plan: Repeat blood cultures are negative x 3 days - have stopped Primaxin per Dr. Maciel ID operations consultant. last fever 100.5 at 7:22am on 08/05/16 Status: Acute (2) Pulmonary emboli Assessment & Plan: continue theraputic Lovenox Dr. Moss plans to place IVC filter once patient is cleared by ID Will consider switching to Eliquis and D/C today to [facility] with outpatient IVC filter placement. Will discuss with with Dr. Montes on rounds. Status: Acute (3) C. difficile colitis Assessment & Plan: continue oral Vancomycin and oral Flagyl day 6 Patient will need a total of 14 days Status: Acute (4) Anemia, chronic disease Status: Chronic Stool occult blood negative Monitor (5) Renal mass Assessment & Plan: consulted Dr. Lopez - f/u recs Status: Acute (6) Prophylactic measure Assessment & Plan: protonix 40mg, theraputic lovenox Status: Acute Management per Dr. Montes
[2016-08-06] MEDS: Pantoprazole 40 mg EC Tab PO SCH (10:31)
[2016-08-06] MEDS: Vancomycin 125 MG/5 ML SOLN (ORAL/RECTAL) PO SCH (10:36)
--- NOTE | 2016-08-06 14:49 | CP.PCM.PN ---
Subjective - Date & Time of Evaluation Date of Evaluation: 08/06/16 Time of Evaluation: 08:00 - Subjective Subjective: discussed on rounds cxr finding likely due to PE iv rx for cdiff in progress follow up dr healy noted Objective - Vital Signs/Intake and Output Vital Signs (last 24 hours): Temp Pulse Resp BP Pulse Ox 100.3 F H 84 20 103/60 95 08/06/16 14:24 08/06/16 14:24 08/06/16 14:24 08/06/16 14:24 08/05/16 23:10 Intake and Output: 08/06/16 08/06/16 06:59 18:59 Intake Total 640 Balance 640 - Medications Medications: Current Medications Acetaminophen (Tylenol 325mg Tab) 650 mg PO Q4 PRN PRN Reason: Fever >100.4 F Last Admin: 08/06/16 10:31 Dose: 650 mg Enoxaparin Sodium (Lovenox) 70 mg SC Q12H [facility] Last Admin: 08/06/16 06:01 Dose: 70 mg Hydroxyzine HCl (Atarax) 25 mg PO Q6 PRN PRN Reason: Anxiety Sodium Chloride (Sodium Chloride 0.9%) 1,000 mls @ 80 mls/hr IV .[id number] [facility] Last Admin: 08/06/16 01:30 Dose: Not Given Levothyroxine Sodium (Synthroid) 25 mcg PO DAILY@0630 [facility] Last Admin: 08/06/16 05:56 Dose: 25 mcg Metronidazole (Flagyl) 500 mg PO Q8 [facility] Last Admin: 08/06/16 05:56 Dose: 500 mg Ondansetron HCl (Zofran Inj) 4 mg IVP Q6H PRN PRN Reason: Nausea/Vomiting Pantoprazole Sodium (Protonix Ec Tab) 40 mg PO DAILY [facility] Last Admin: 08/06/16 10:31 Dose: 40 mg Primidone (Mysoline) 250 mg PO Q12 [facility] Last Admin: 08/06/16 10:34 Dose: 250 mg Quetiapine Fumarate (Seroquel) 300 mg PO HS [facility] Last Admin: 08/05/16 21:44 Dose: 300 mg Vancomycin HCl (Vancocin (Oral Or Rectal Use)) 250 mg PO QID [facility] Last Admin: 08/06/16 10:36 Dose: 250 mg - Labs Labs: 08/06/16 07:09 08/06/16 07:09 PT 12.9 SECONDS (9.7-12.2) H 08/05/16 11:33 INR 1.1 08/05/16 11:33 APTT 24 SECONDS (21-34) 08/05/16 11:33 - Constitutional Appears: Non-toxic, Chronically Ill - Head Exam Head Exam: ATRAUMATIC, NORMAL INSPECTION, NORMOCEPHALIC - Eye Exam Eye Exam: PERRL. absent: Scleral icterus - ENT Exam ENT Exam: Mucous Membranes Dry - Neck Exam Neck Exam: absent: Lymphadenopathy - Respiratory Exam Respiratory Exam: Decreased Breath Sounds, Rhonchi - Cardiovascular Exam Cardiovascular Exam: REGULAR RHYTHM - GI/Abdominal Exam GI & Abdominal Exam: Distended, Soft - Extremities Exam Extremities Exam: absent: Calf Tenderness, Pedal Edema - Back Exam Back Exam: absent: CVA tenderness (L), CVA tenderness (R) - Neurological Exam Neurological Exam: Alert, Awake, Oriented x3 Assessment and Plan (1) Pulmonary emboli Status: Acute (2) Anemia, chronic disease Status: Chronic (3) Dehydration Status: Acute (4) Pulmonary emboli Status: Acute (5) Pyelonephritis Status: Acute (6) Renal mass Status: Acute
[2016-08-06 16:08] VITALS: BP 145/79; PULSE 98; TEMP 99
[2016-08-06 16:14] VITALS: O2SAT 98
== END 2016-08-06 16:40 | DRG 871 ==
LOC: C.ER 12:26 → C.9E 15:30 → C.3T 16:52 → C.6T 08-02 19:17
PROVIDERS: ADMIT Internal Medicine Pulmonary Disease; ATTEND Internal Medicine Pulmonary Disease
DX: A41.1 Sepsis due to other specified staphylococcus (principal); I26.99 Other pulmonary embolism without acute cor pulmonale; E87.1 Hypo-osmolality and hyponatremia; N12 Tubulo-interstitial nephritis, not specified as acute or chronic; R29.6 Repeated falls; E86.0 Dehydration; I10 Essential (primary) hypertension; M17.0 Bilateral primary osteoarthritis of knee; E03.9 Hypothyroidism, unspecified; B96.5 Pseudomonas (aeruginosa) (mallei) (pseudomallei) as the cause of diseases classified elsewhere; D63.8 Anemia in other chronic diseases classified elsewhere; Z87.891 Personal history of nicotine dependence; Z85.528 Personal history of other malignant neoplasm of kidney; Z87.440 Personal history of urinary (tract) infections